=== PATIENT | male | born 1950 | race Caucasian/White ===

== ENCOUNTER 2022-02-08 14:53 | Inpatient (IN) | payer MEDICARE, OTHER, SELFPAY ==
[2022-02-08] VITALS (7 sets, daily range): BP systolic 104–158; BP diastolic 70–86; PULSE 56–71; RESP 15–18; TEMP 36.2–37; O2SAT 96–99; BMI 24.4
--- NOTE | 2022-02-08 15:16 | XR_ITS ---
WS: [id number] XR chest 1V portable [id number] REASON FOR EXAM: dyspnea/cough FINDINGS: Presumed overlying artifact battery pack superimposed over the left heart. The heart and mediastinum are within normal limits. No active pulmonary parenchymal or pleural disease is identified. Degenerative changes in the mid and lower thoracic spine. XR/XR chest 1V portable [id number] IMPRESSION: No acute chest abnormality.
--- NOTE | 2022-02-08 15:16 | ECG_ITS ---
[facility] Test Date: 2022-02-08 Pat Name: Isidro Mirza Department: Room: Gender: Male Internal Audit Consultant: : 1950 Requested By: Redd Martinez Order Number: [id number] Johnathan MD: Ko Bailey M.D. Measurements Intervals [place] Rate: 62 P: 25 AR: 202 QRS: 39 QRSD: 99 T: 64 QT: 362 QTc: 369 Interpretive Statements SINUS RHYTHM NONSPECIFIC T-WAVE ABNORMALITY No previous ECG available for comparison Electronically Signed On 02-09-2022 16:05:29 CDT by Ko Bailey M.D. [email or web address]/[id number] f
--- NOTE | 2022-02-08 15:53 | ED_ITS ---
HPI - Chest Pain General: Chief Complaint: Chest Pain Stated Complaint: sent to ER per Dr. Bailey Time Seen by Provider: 02/08/22 15:13 Source: patient Mode of arrival: ambulatory Limitations: no limitations History of Present Illness: 8-year-old male presents to the emergency room with episodes of lightheadedness dizziness near syncope. He was wearing a Holter monitor report but came back today and he had several long pauses up to 4 to 5 seconds. He has not had any chest pain. No known history of coronary disease. Onset (ago): minute(s) Timing of current episode: episodic Prior episodes: Yes Severity: moderate Relieving factors: nothing Exacerbating factors: nothing Associated symptoms: Reports palpitations; Deny abdominal pain, diaphoresis, dyspnea, fever(s), leg edema, nausea, sense of impending doom, syncope or vomiting Treatment prior to arrival: none Review of Systems Const: Denies: fever(s), chills or diaphoresis ENMT: Denies: throat pain, ear or mastoid pain, nasal discharge or nasal congestion Card: Reports: palpitations, irregular heart rhythm, lightheadedness and pre- syncope; Denies: chest pain or syncope Resp: Denies: dyspnea GI: Denies: abdominal pain, nausea or vomiting : Denies: flank pain, difficulty urinating, dysuria, urinary frequency or urinary urgency Skin/Breast: Denies: rash or pruritus PFS ED PFSH: Medical History (Updated 02/08/22 @ 17:41 by Redd Prather DO) Diabetes Hypertension Hypothyroidism Physical Exam Const: GENERAL APPEARANCE: cooperative and comfortable ORIENTATION/CONSCIOUSNESS: Yes awake, Yes oriented to person, Yes oriented to place and Yes oriented to time HENMT: COMMON NORMALS: normocephalic, atraumatic and hearing grossly normal bilaterally HEAD & SCALP: normocephalic and atraumatic Neck/C-Spine: COMMON NORMALS: no JVD Resp: COMMON NORMALS: normal respiratory effort, No retractions, No use of accessory muscles and clear to auscultation bilaterally AUSCULTATION: clear to auscultation bilaterally Cardio: COMMON NORMALS: no JVD, regular rate, regular rhythm and No murmurs present (Cardio) RATE: regular rate RHYTHM: regular rhythm GI: COMMON NORMALS: Soft to palpation and No hepatosplenomegaly present AUSCULTATION: Yes normoactive bowel sounds PALPATION: Yes Soft to palpation, No Tenderness to palpation present (GI), No Guarding due to palpation present (GI) and Yes No hepatosplenomegaly present Extremity: COMMON NORMALS: normal to inspection, capillary refill normal, no clubbing, cyanosis or edema, no calf tenderness and no pedal edema Neuro: SENSORIUM/ORIENTATION: Yes oriented to person, Yes oriented to place and Yes oriented to time Skin: COMMON NORMALS: no rashes or lesions noted GENERAL SKIN EXAM: no rashes or lesions noted Course Vital Signs: Vital signs: Vital Signs Temperature 98.6 F 02/08/22 15:04 Pulse Rate 71 02/08/22 15:04 Respiratory Rate 18 02/08/22 15:04 Blood Pressure 153/79 02/08/22 15:04 Pulse Oximetry 98 02/08/22 15:04 MDM - Chest Pain Medical Decision Making Patient is having heart block with long pauses on heart monitor he will need to be admitted and evaluated by cardiology for possibility of pacemaker placement discussed with Dr. Hernandez and consulted him admitted to the hospitalist Medical Records I reviewed the patient's medical records. Lab Data I reviewed the patient's lab results. : 02/08/22 16:10 02/08/22 16:10 Radiology Impressions Chest X-Ray 02/08/22 15:16 IMPRESSION: No acute chest abnormality. Laboratory Results WBC 7.0 10^3/uL (4.0-10.0) 02/08/22 16:10 RBC 4.82 10^6/uL (4.1-5.3) 02/08/22 16:10 Hgb 13.1 g/dL (11.7-16.6) 02/08/22 16:10 Hct 40.7 % (42.0-52.0) L 02/08/22 16:10 MCV 84.4 fl (80-94) 02/08/22 16:10 MCH 27.2 pg (28.0-34.0) L 02/08/22 16:10 MCHC 32.2 g/dL (30.0-36.0) 02/08/22 16:10 RDW 15.9 % (12.1-15.1) H 02/08/22 16:10 Plt Count 141 10^3/cmm (130-400) 02/08/22 16:10 MPV 11.0 fL (7.4-10.4) H 02/08/22 16:10 Neut % (Auto) 76.5 % 02/08/22 16:10 Lymph % (Auto) 11.0 % 02/08/22 16:10 [place] % (Auto) 10.2 % 02/08/22 16:10 Eos % (Auto) 1.8 % 02/08/22 16:10 Baso % (Auto) 0.4 % 02/08/22 16:10 Neut # (Auto) 5.37 10^3/uL (1.8-7.7) 02/08/22 16:10 Lymph # (Auto) 0.8 10^3/uL (0.8-4.8) 02/08/22 16:10 [place] # (Auto) 0.7 10^3/uL (0.2-0.9) 02/08/22 16:10 Eos # (Auto) 0.1 10^3/uL (0.0-0.8) 02/08/22 16:10 Baso # (Auto) 0.0 10^3/uL (0.0-0.1) 02/08/22 16:10 Nucleated RBC % (auto) 0 % 02/08/22 16:10 Nucleated RBCs # 0.0 /100WBC 02/08/22 16:10 Sodium 139 mmol/L (136-145) 02/08/22 16:10 Potassium 3.9 mmol/L (3.5-5.1) 02/08/22 16:10 Chloride 103 mmol/L (98-107) 02/08/22 16:10 Carbon Dioxide 21 mmol/L (22-29) L 02/08/22 16:10 Anion Gap 18.9 (5-19) 02/08/22 16:10 BUN 17 mg/dL (8-23) 02/08/22 16:10 Creatinine 2.2 mg/dL (0.7-1.2) H 02/08/22 16:10 GFR Calculation 29.7 mL/min (90-130) L 02/08/22 16:10 Glucose 216 mg/dL (65-115) H 02/08/22 16:10 Calculated Osmolality 296 mOsm/kg (285-295) H 02/08/22 16:10 Calcium 9.7 mg/dL (8.5-10.5) 02/08/22 16:10 Total Bilirubin 0.6 mg/dL (0.15-1.2) 02/08/22 16:10 AST 17 U/L (0-40) 02/08/22 16:10 ALT 16 U/L (0-41) 02/08/22 16:10 Alkaline Phosphatase 41 IU/L (40-130) 02/08/22 16:10 Troponin T Baseline 22 ng/L (0-15) H 02/08/22 16:10 Total Protein 7.1 g/dL (6.6-8.7) 02/08/22 16:10 Albumin 4.8 g/dL (3.5-5.2) 02/08/22 16:10 Globulin 2.3 g/dL (1.3-4.6) 02/08/22 16:10 Discharge Plan Discharge Condition: Stable Prescriptions: No Action carvedilol 6.25 mg tablet 6.25 mg PO BID 0RF levothyroxine 50 mcg tablet 50 mcg PO DAILY 0RF metformin 1,000 mg tablet 1,000 mg PO BID 0RF aspirin 81 mg Tablet,Chewable 81 mg PO DAILY 0RF losartan 100 mg tablet 100 mg PO DAILY 0RF rosuvastatin 40 mg tablet 40 mg PO DAILY 0RF Tradjenta 5 mg Tablet 5 mg PO DAILY 0RF Referrals: Joel North MD [Primary Care Provider] - Coding Level of Care Code ED Laborer Cutting Tool for Chg Fwd Exam Comprehensive
[2022-02-08 16:14] LABS: Basophils % 0.4 %; Eosinophils # 0.1 10^3/uL (0.0-0.8); Eosinophils % 1.8 %; Hematocrit 40.7 % (42.0-52.0); Hemoglobin 13.1 g/dL (11.7-16.6); Lymphocytes # 0.8 10^3/uL (0.8-4.8); Mean Corpuscular HGB Conc 32.2 g/dL (30.0-36.0); Mean Corpuscular Hemoglobin 27.2 pg (28.0-34.0); Mean Corpuscular Volume 84.4 fl (80-94); Monocytes # 0.7 10^3/uL (0.2-0.9); Monocytes % 10.2 %; Neutrophils # 5.37 10^3/uL (1.8-7.7); Neutrophils % 76.5 %; Nucleated Red Blood Cells % 0 %; Platelet Count 141 10^3/cmm (130-400); Red Blood Count 4.82 10^6/uL (4.1-5.3); Red Cell Distribution Width 15.9 % (12.1-15.1)
[2022-02-08 16:52] LABS: Alanine Aminotransferase 16 U/L (0-41); Albumin Level 4.8 g/dL (3.5-5.2); Alkaline Phosphatase 41 IU/L (40-130); Anion Gap 18.9 (5-19); Aspartate Amino Transferase 17 U/L (0-40); Blood Urea Nitrogen 17 mg/dL (8-23); Calcium 9.7 mg/dL (8.5-10.5); Carbon Dioxide 21 mmol/L (22-29); Chloride 103 mmol/L (98-107); Globulin 2.3 g/dL (1.3-4.6); Glomerular Filtration Rate 29.7 mL/min (90-130); Glucose 216 mg/dL (65-115); Osmolality Calculated 296 mOsm/kg (285-295); Potassium 3.9 mmol/L (3.5-5.1); Sodium 139 mmol/L (136-145); Total Bilirubin 0.6 mg/dL (0.15-1.2); Total Protein 7.1 g/dL (6.6-8.7)
[2022-02-08 16:54] LABS: Troponin(5th) Baseline 22 ng/L (0-15)
--- NOTE | 2022-02-08 17:16 | ECG_ITS ---
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 Measurements Intervals [place] Rate: 61 P: 18 RI: 196 QRS: 26 QRSD: 102 T: 58 QT: 375 QTc: 378 Interpretive Statements SINUS RHYTHM NONSPECIFIC T-WAVE ABNORMALITY Compared to ECG 02/08/2022 15:18:06 No significant changes Electronically Signed On 02-09-2022 16:11:50 CDT by Ko Bailey M.D. [id number]
--- NOTE | 2022-02-08 17:47 | P.HP_ITS ---
Providers/Chief Complaint Primary Care Provider: Joel North MD Chief Complaint: sent to ER per Dr. Bailey History of Present Illness Isidro Mirza is a 71 year old male who presented to the hospital after abnormal Holter report. Patient is stating that he had 1 syncopal event about 3 to 4 months ago when he was shopping in the [place]. And then he had 2 presyncopal events at home. Most of these events happen at the time of exertion. He has not experienced any AR, CHF, he has been on Coreg for hypertension, he also has history of hypothyroidism. No recent chest pain, fever, diarrhea. He is vaccinated for COVID-19. In last 48 hours he did not experience any chest pain, shortness of breath dizziness or confusion. No recent falls. He was called because of abnormal Holter monitoring report. There is 4.1-second of minus pause. Patient is hemodynamically stable. We will keep him n.p.o. after midnight, has been evaluated by Dr. Bailey, plan for pacemaker placement. Review of Systems Const: Denies: fever(s) Eyes: Denies: change in vision ENMT: Denies: throat pain Card: Denies: chest pain Resp: Denies: dyspnea GI: Denies: abdominal pain : Denies: flank pain Musc: Denies: neck pain Skin/Breast: Denies: rash Neuro: Denies: headache(s) Psych: Denies: anxiety Endo: Denies: polyuria Bertrand/Lymph: Denies: easy bruising All/Imm: Denies: urticaria Medications/Allergies Home Medications Medication Instructions Recorded Confirmed Last Taken Type aspirin 81 mg chewable tablet 81 mg PO DAILY 02/08/22 02/08/22 02/08/22 History carvedilol 6.25 mg tablet 6.25 mg PO BID 02/08/22 02/08/22 02/08/22 History levothyroxine 50 mcg tablet 50 mcg PO DAILY 02/08/22 02/08/22 02/08/22 History linagliptin 5 mg tablet (Tradjenta) 5 mg PO DAILY 02/08/22 02/08/22 02/08/22 History losartan 100 mg tablet 100 mg PO DAILY 02/08/22 02/08/22 02/08/22 History metformin 1,000 mg tablet 1,000 mg PO BID 02/08/22 02/08/22 02/08/22 History rosuvastatin 40 mg tablet 40 mg PO DAILY 02/08/22 02/08/22 02/08/22 History Allergies Allergy/AdvReac Type Severity Reaction Status Date / Time No Known Allergies Allergy Unverified 02/08/22 16:17 PFSH Acute PFSH: Medical History (Updated 02/08/22 @ 18:20 by Miguel Andrews MD) Diabetes Hypertension Hypothyroidism Surgical History (Updated 02/08/22 @ 18:20 by Miguel Andrews MD) Hx of tonsillectomy Family History (Updated 02/08/22 @ 18:20 by Miguel Andrews MD) Sister Pacemaker Other Diabetes Social History (Updated 02/08/22 @ 18:21 by Miguel Andrews MD) Smoking and tobacco status: never smoked Substance/Drug Use: never Household members: spouse Vitals/I&O/Wt Last Vital Signs Temp 98.6 F 02/08/22 15:04 Pulse 71 02/08/22 15:04 Resp 18 02/08/22 15:04 BP 153/79 02/08/22 15:04 Pulse Ox 98 02/08/22 15:04 Weight last 48 hrs Weight 81.647 kg Physical Exam Narrative: Very pleasant elderly male Euvolemic , S2 no murmur appreciated No signs of heart failure Nonfocal neuro exam Saturating well on room air Abdomen is soft Appropriate mood and affect No joint swelling No audible stridor or wheezing Data : 02/08/22 16:10 02/08/22 16:10 A&P Assessment and plan (1) Hypothyroidism: Status: Acute (2) Hypertension: Status: Acute (3) Diabetes: Status: Acute (4) Sinus pause: Status: Acute (5) Syncopal episodes: Status: Acute Plan Syncopal event, presyncopal events in the past Holter monitoring report consistent with sinus pause 4.1-second Does not appear to be third-degree AV block, irregular P&R marching Currently stable without any symptoms N.p.o. after midnight Hold AV evan blocking agent Patient is full code Cardiology consulted Low-dose sliding scale Hypothyroidism: Check TSH, mag level, continue levothyroxine at 50 mics for now Attestations Medical Necessity Statement*: Patient will need pacemaker evaluation anticipating more than 2 midnights in the hospital Time Spent in Patient Care: 40mins Coding Level of Care Code Acute Director Of Accounts Receivable for Chg Fwd Diagnoses Hypothyroidism E03.9 Hypertension I10 Diabetes E11.9 Sinus pause I45.5 Syncopal episodes R55
[2022-02-08 19:31] LABS: Thyroid Stimulating Hormone 1.33 uIU/mL (0.27-4.20)
[2022-02-08 19:45] LABS: Troponin 5 2HR 22.92 ng/L (0-15)
[2022-02-08 19:47] LABS: Troponin 5 2HR Delta 0.92 ABS# (0-10)
--- NOTE | 2022-02-08 21:16 | ECG_ITS ---
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 Measurements Intervals [place] Rate: 55 P: 15 SD: 208 QRS: 14 QRSD: 110 T: 66 QT: 404 QTc: 387 Interpretive Statements SINUS BRADYCARDIA NONSPECIFIC T-WAVE ABNORMALITY Compared to ECG 02/08/2022 18:14:19 Sinus rhythm no longer present T-wave abnormality still present Electronically Signed On 02-09-2022 16:11:15 CDT by Ko Bailey M.D. [id number]
[2022-02-08 22:16] LABS: Glucose Point of Care 123 mg/dL (70-110)
--- NOTE | 2022-02-08 22:37 | P.CONIM_ITS ---
Providers/Reason For Consult Consulting Physician/Specialty*: Ko Bailey MD/ Cardiology Reason for Consult*: Pause/ Syncopal episode Requesting Physician: Dr Prather Attending Physician: Ko Bailey M.D Primary Care Provider: Joel North MD History of Present Illness History of Present Illness Isidro Mirza is a 71 year old male with past medical history of hypertension, hypothyroidism and diabetes earlier who has been sent to the emergency room after having a 4-second pause on event monitor. Patient had 1 episode of syncope about 4 months back after he donated blood and went to the [facility]. He was walking and felt lightheaded and fell down. He had another episode when he was picking up heavy boxes and felt lightheaded with that. No prior cardiac history. Denies any chest pain. Says he does get dyspnea on exertion at times. On review of Holter monitor, there are 2 nonconducted P waves in succession. This occurred at around 7 PM when patient was watching TV. Denies any symptoms with it. He says that he has been getting lightheaded symptoms in the last week or so since he is wearing the event monitor but was not called regarding any other arrhythmias. His lightheadedness is symptoms are mostly when he stands up from sitting position or bends down and gets up. EKG does not show any heart block. On Holter monitoring, his heart rate is taking 60s and 70s. Review of Systems Const: Denies: fever(s) Eyes: Denies: change in vision ENMT: Denies: throat pain Card: Denies: chest pain Resp: Denies: dyspnea GI: Denies: abdominal pain : Denies: flank pain Musc: Denies: neck pain Skin/Breast: Denies: rash Neuro: Denies: headache(s) Psych: Denies: anxiety Endo: Denies: polyuria [place]/Lymph: Denies: easy bruising All/Imm: Denies: urticaria Medications/Allergies Home Medications Medication Instructions Recorded Confirmed Last Taken Type aspirin 81 mg chewable tablet 81 mg PO DAILY 02/08/22 02/08/22 02/08/22 History carvedilol 6.25 mg tablet 6.25 mg PO BID 02/08/22 02/08/22 02/08/22 History levothyroxine 50 mcg tablet 50 mcg PO DAILY 0402/08/22 02/08/22 History linagliptin 5 mg tablet (Tradjenta) 5 mg PO DAILY 02/08/22 02/08/22 02/08/22 History losartan 100 mg tablet 100 mg PO DAILY 02/08/22 02/08/22 02/08/22 History metformin 1,000 mg tablet 1,000 mg PO BID 02/08/22 02/08/22 02/08/22 History rosuvastatin 40 mg tablet 40 mg PO DAILY 02/08/22 02/08/22 02/08/22 History Allergies Allergy/AdvReac Type Severity Reaction Status Date / Time No Known Allergies Allergy Unverified 02/08/22 16:17 Current Medications Generic Name Dose Route Start Last Admin Trade Name Daisy PRN Reason Stop Dose Admin Insulin Human Lispro 0 unit 02/08/22 20:48 02/08/22 21:48 Insulin Lispro 100 Unit/1 Ml SUBCUT Not Given TIDWM GUANAKO Protocol PFSH Acute PFSH: Medical History Diabetes Hypertension Hypothyroidism Surgical History Hx of tonsillectomy Family History Sister Pacemaker Other Diabetes Social History Smoking and tobacco status: never smoked Substance/Drug Use: never Household members: spouse Vitals/I&O/Wt Last Vital Signs Temp 98.6 F 02/08/22 15:04 Pulse 61 02/08/22 22:00 Resp 15 02/08/22 20:51 BP 130/70 02/08/22 20:51 Pulse Ox 98 02/08/22 20:51 02/08/22 02/08/22 02/08/22 06:59 14:59 22:59 Intake Total 120 / 120 Balance 120 / 120 Weight last 48 hrs Weight 180 lb Physical Exam Narrative: GENERAL: Patient is alert, awake and oriented x3. [] NECK: No jugular vein distension. [] HEENT: No cyanosis. No icterus. No pallor. [] HEART: Regular S1 and S2. No murmur, rub or gallop. [] LUNGS: Clear to auscultate bilaterally. [] ABDOMEN: Soft, nontender and nondistended. Positive bowel sounds. No guarding, rebound or tenderness. [] CENTRAL NERVOUS SYSTEM: Grossly nonfocal. [] EXTREMITIES: Lower extremities with 1+ edema bilaterally. Pulses palpable in the lower extremities, both dorsalis pedis and posterior tibial. [] Data : 02/09/22 02:58 02/09/22 02:58 A&P Assessment and plan (1) Sinus arrest: Status: Acute (2) Hypertension: Status: Acute (3) Diabetes: Status: Acute (4) Hypothyroidism: Status: Acute Plan Patient has a history of one syncopal episode and a presyncopal episode in the past. He has been on event monitoring for over a week. Yesterday had nonconducted P waves with a pause of 4 seconds. However he was asymptomatic. His symptoms are not correlating with his rhythm. He feels lightheaded when he bends down and stands up. This has happened several times during the last 1 week however no other pauses have been noted. His syncopal episode occurred after he donated blood and was walking in [facility]. He is on Coreg. We will hold with rate controlling medications. As we have no evidence so far correlation of symptoms with his pause, we will continue to follow this time. Add amlodipine 5 mg to compensate for antihypertensive effect of Coreg. Has occasional dyspnea on exertion. We will order echocardiogram and exercise MIBI. Exercise will also give information regarding chronotropic competence. Since he is in the hospital, his heart rates have been in the 60s and 70s. Telemetry overnight and decision regarding need for pacemaker based on that. Thanks for involving us with care of this patient. We will continue to follow. Please call with questions Coding Level of Care Code Acute Numberer And Wirer for Lm Thomas Diagnoses Sinus arrest I45.5 Hypertension I10 Diabetes E11.9 Hypothyroidism E03.9
[2022-02-09] VITALS (9 sets, daily range): BP systolic 123–175; BP diastolic 65–79; PULSE 55–83; RESP 13–20; TEMP 36.6–36.7; O2SAT 93–98
[2022-02-09 03:39] LABS: Basophils % 0.5 %; Eosinophils # 0.2 10^3/uL (0.0-0.8); Eosinophils % 2.9 %; Hematocrit 37.3 % (42.0-52.0); Hemoglobin 11.6 g/dL (11.7-16.6); Lymphocytes # 1.2 10^3/uL (0.8-4.8); Lymphocytes % 22.1 %; Mean Corpuscular HGB Conc 31.1 g/dL (30.0-36.0); Mean Corpuscular Hemoglobin 26.9 pg (28.0-34.0); Mean Corpuscular Volume 86.5 fl (80-94); Mean Platelet Volume 11.3 fL (7.4-10.4); Monocytes # 0.7 10^3/uL (0.2-0.9); Neutrophils # 3.37 10^3/uL (1.8-7.7); Neutrophils % 61.1 %; Nucleated Red Blood Cells % 0 %; Platelet Count 142 10^3/cmm (130-400); Red Blood Count 4.31 10^6/uL (4.1-5.3); Red Cell Distribution Width 15.8 % (12.1-15.1); White Blood Count 5.5 10^3/uL (4.0-10.0)
[2022-02-09 03:51] LABS: Anion Gap 15.3 (5-19); Blood Urea Nitrogen 18 mg/dL (8-23); Calcium 9.6 mg/dL (8.5-10.5); Carbon Dioxide 23 mmol/L (22-29); Chloride 106 mmol/L (98-107); Glomerular Filtration Rate 29.7 mL/min (90-130); Glucose 130 mg/dL (65-115); Osmolality Calculated 296 mOsm/kg (285-295); Potassium 3.3 mmol/L (3.5-5.1); Sodium 141 mmol/L (136-145)
[2022-02-09 06:24] LABS: Glucose Point of Care 121 mg/dL (70-110)
--- NOTE | 2022-02-09 06:29 | PC.NURSE ---
left chest hair clipped. Site cleansed with CHG. Gown changed. Leads placed on pt's back.
--- NOTE | 2022-02-09 07:33 | USCV_ITS ---
Isidro Mirza Age: 71 Gender: M : 1950 Exam Date: 02/09/2022 07:59 Ordering Phys: Ko Bailey M.D ([email or web address]) Technologist: SHERITA [place] [facility] [place]: Dyspnea on exertion BP: 175 / 79 HR: 53 Rhythm: Sinus Technical Quality: Adequate MEASUREMENTS (Male / Female) Normal Values 2D ECHO LV Diastolic Diameter PLAX 4.8 cm 4.2 - 5.9 / 3.9 - 5.3 cm LV Systolic Diameter PLAX 2.8 cm IVS Diastolic Thickness 0.9 cm 0.6 - 1.0 / 0.6 - 0.9 cm IVS Systolic Thickness 1.4 cm LVPW Diastolic Thickness 0.9 cm 0.6 - 1.0 / 0.6 - 0.9 cm LVPW Systolic Thickness 1.6 cm RV Chamber Size 2.3 cm LVOT Diameter 2.0 cm LV Ejection Fraction 2D Teich 72.3 % LV Ejection Fraction MOD 2C 61.2 % LV Ejection Fraction 2C AL 67.4 % LA Diameter 3.0 cm LA Width 3.7 cm LA Height 3.8 cm RA Width 2.3 cm RA Height 4.1 cm Aorta at Sinotubular Diameter 2.3 cm M-MODE Aortic Annulus Diameter 2.9 cm LA Ao Ratio MM 1.1 MV E Point Septal Separation 0.3 cm DOPPLER AV Peak Velocity 272.3 cm/s LVOT Peak Velocity 108.0 cm/s AV Area Cont Eq vti 0.6 cm squared AV Area Cont Eq pk 1.3 cm squared MV Area PHT 2.4 cm squared Mitral E to A Ratio 0.7 MV E' Velocity 32.5 cm/s Mitral E to MV E' Ratio 5.9 Mitral E to LV E' Lateral Ratio 5.4 Mitral E to LV E' Septal Ratio 6.7 TR Peak Velocity 251.0 cm/s TR Peak Gradient 25.2 mmHg TV Peak E Velocity 49.0 cm/s Right Atrial Pressure 3.0 mmHg Pulmonary Artery Systolic Pressu 28.2 mmHg PV Peak Velocity 126.0 cm/s RV Acceleration Time 0.1 s RV Ejection Time 0.3 s RV AcT/ET 0.3 FINDINGS Left Ventricle Normal left ventricular size. LV systolic function is normal with EF of 55-60%. No regional wall motion abnormalities. Grade 1 diastolic dysfunction Right Ventricle The right ventricle is normal in size and function. Right Atrium The right atrium is normal in size. Left Atrium The left atrium is normal in size. Mitral Valve Structurally normal mitral valve without significant stenosis or prolapse. There is trace mitral regurgitation. Aortic Valve Structurally normal aortic valve without significant sclerosis or stenosis. There is mild aortic regurgitation. Tricuspid Valve Structurally normal tricuspid valve without significant stenosis. Trace tricuspid regurgitation. Insufficient TR jet to calculate RVSP Pulmonic Valve Structurally normal pulmonic valve without significant stenosis. There is no pulmonic regurgitation. Pericardium Normal pericardium without effusion. Aorta Normal ascending aorta dimension. CONCLUSIONS LV systolic function is normal with EF of 55-60% Grade 1 diastolic dysfunction Trace mitral regurgitation Mild aortic regurgitation Trace tricuspid regurgitation No comparison studies are available Ko Bailey MD (Electronically Signed) Final Date: 09 February 2022 16:32 S
--- NOTE | 2022-02-09 07:41 | NMCV_ITS ---
NM selina perf SPECT r/s* [id number] Isidro Mirza Age: 71 Gender: M : 1950 Exam Date: 02/09/2022 10:16 Ordering Phys: Ko Bailey M.D ([email or web address]) Technologist: JAKE Dumont Exam Location: [facility] Indications: SINUS PAUSE, SYNCOPE STRESS TEST Please see separate stress test report in [facility] for full findings IMAGE PROTOCOL Rest/Stress 1 Exercise Day Radiopharmaceutical Dose (mCi) Administration Site Administered by Rest: Tc-99m 10.7 IV JAKE Dumont Sestamibi Stress:Tc-99m 32.6 IV JAKE Vides Sestamibi Rest: 09-Feb-2022 60 Discovery 630 Stress: 09-Feb-2022 15 Discovery 630 Radiopharmaceutical was injected at 85 % maximum heart rate. Images obtained in supine and prone position. SPECT RESULTS Technical Quality: Excellent Raw Data Analysis: Normal Image Corrections: No attenuation or motion correction applied Summed Stress Score: 0 Summed Rest Score: 0 Summed Difference Score: 0 PERFUSION FINDINGS SPECT images demonstrate homogeneous tracer distribution throughout the myocardium. FUNCTIONAL RESULTS (calculated via Gated SPECT) Stress Image LV EF (%): 83 Stress EDV (mL):81 TID: 0.69 Stress ESV (mL):14 FUNCTIONAL FINDINGS: There is normal left ventricular systolic function. IMPRESSIONS 1. Normal myocardial perfusion imaging with no evidence of ischemia 2. LV systolic function is normal Ko Bailey MD (Electronically Signed) Final Date: 09 February 2022 12:02 S
--- NOTE | 2022-02-09 08:31 | P.PN_ITS ---
Subjective Subjective: Patient is feeling well. On telemetry, no pauses noted. Vitals/I&O/Wt Last Vital Signs Temp 98.1 F 02/09/22 07:28 Pulse 55 L 02/09/22 07:28 Resp 16 02/09/22 07:28 BP 175/79 02/09/22 07:28 Pulse Ox 98 02/09/22 07:28 02/08/22 02/09/22 02/09/22 22:59 06:59 14:59 Intake Total 120 / 120 0 / 120 Balance 120 / 120 0 / 120 Weight last 48 hrs Weight 180 lb Physical Exam Narrative: GENERAL: Patient is alert, awake and oriented x3. [] NECK: No jugular vein distension. [] HEENT: No cyanosis. No icterus. No pallor. [] HEART: Regular S1 and S2. No murmur, rub or gallop. [] LUNGS: Clear to auscultate bilaterally. [] ABDOMEN: Soft, nontender and nondistended. Positive bowel sounds. No guarding, rebound or tenderness. [] CENTRAL NERVOUS SYSTEM: Grossly nonfocal. [] EXTREMITIES: Lower extremities with no edema bilaterally. Pulses palpable in the lower extremities, both dorsalis pedis and posterior tibial. [] Data : 02/09/22 02:58 02/09/22 02:58 A&P Assessment and plan (1) Hypertension: Status: Acute (2) Diabetes: Status: Acute (3) Hypothyroidism: Status: Acute (4) Pre-syncope: Status: Acute Plan Patient has a history of one syncopal episode and a presyncopal episode in the past. He has been on event monitoring for over a week. Yesterday had 2 consecutive non-conducted P waves with a pause of 4 seconds. However he was asymptomatic. His symptoms are not correlating with his rhythm. He feels lightheaded when he bends down and stands up. This has happened several times during the last 1 week however no other pauses have been noted on event monitor. His syncopal episode occurred after he donated blood and was walking in [facility]. He was on Coreg. We will hold with rate controlling medications. As we have no evidence so far correlation of symptoms with his pause, we will continue to follow at this time. Add amlodipine 5 mg as coreg has been stopped. Has occasional dyspnea on exertion. We obtained echocardiogram showing normal LV systolic function and exercise MIBI that showed no evidence of ischemia and good chronotropic response. At this time we will hold off on pacemaker placement given no correlation found between symptoms and rhythm. He had single episode of non-conducted p waves with a 4 second pause but he was completely asymptomatic at that time. Patient will continue to wear the event monitor. We will follow in the office in 3 weeks. In between if there are any episodes of long pauses, syncope/presyncope, patient has been informed to come to ER. He understands the plan and has agreed to it. Thanks for involving us with care of this patient. Please call with questions Attestations Medical Necessity Statement*: Care expected to cross 2 midnights. Coding Level of Care Code Acute Director Speech for Lm Thomas Diagnoses Hypertension I10 Diabetes E11.9 Hypothyroidism E03.9 Pre-syncope R55
[2022-02-09] MEDS: losartan 50 mg Tablet 100 MG PO (09:30)
[2022-02-09] MEDS: levothyroxine 50 mcg Tablet PO (09:30)
[2022-02-09] MEDS: aspirin 81 mg Chew Tablet PO (09:30)
--- NOTE | 2022-02-09 09:34 | P.PN_ITS ---
Subjective Subjective: Overnight sinus bradycardia first-degree AV block Plan for exercise stress test as per Dr. Bailey Hemodynamically stable No chest pain confusion or shortness of breath Creatinine 2.2 Potassium 3.3 Magnesium 2.0 Vitals/I&O/Wt Last Vital Signs Temp 98.1 F 02/09/22 07:28 Pulse 55 L 02/09/22 07:28 Resp 16 02/09/22 07:28 BP 175/79 02/09/22 09:30 Pulse Ox 98 02/09/22 07:28 02/08/22 02/09/22 02/09/22 22:59 06:59 14:59 Intake Total 120 / 120 0 / 120 Balance 120 / 120 0 / 120 Weight last 48 hrs Weight 81.647 kg Physical Exam Narrative: Patient is comfortable in his bed Saturating well on room air Hemodynamically stable Heart rate 55-60 No signs of heart failure Pleasant and cooperative No signs of fluid overload No audible stridor or wheezing Saturating well on room air Data : 02/09/22 02:58 02/09/22 02:58 A&P Assessment and plan (1) Sinus pause: Status: Acute (2) Syncopal episodes: Status: Acute (3) Hypothyroidism: Status: Acute (4) Hypertension: Status: Acute (5) Diabetes: Status: Acute Plan Sinus pauses Syncopal event in the past No active symptoms Hemodynamically stable Plan for exercise stress test this morning Dr. Bailey planning for the stress test Potassium repleted: Magnesium normal Be noted blocking agent discontinued Chronic kidney disease without acute exacerbation Would recommend outpatient nephrology follow-up Avoid nephrotoxic agents N.p.o. 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
--- NOTE | 2022-02-09 10:38 | PC.CHAP ---
Pastoral Care Encounter/Spiritual Assessment Type of Contact [] Declined bonderizer operator visit [] Patient/Family/Request visit [] Outpatient visit [] Follow-up visit [] Physician referral [] Code/Alert [x] Routine visit [] Staff referral [] Actively dying [] Patient sleeping [x] Family support [] [] Out of room [] Palliative care [] [] Receiving care in room [] Pre-surgical visit [] Trauma [] Long length of stay [] ICU visit [] Other: Relational/Emotional Strength [] Patient feels connected with others/family/visitors/staff [] Distress [] Loneliness/isolation [] Abandonment Spirituality of Patient [] Person of Elise [] Attends Uatsdin of their Elise [] Believes in Prayer [] Reads Bible or Nondenominational materials [] There are Spiritual issues to be addressed [employer] Fabricating Supervisor Interventions [x] Prayer [] Active listening [] Non-anxious presence [] Spiritual/emotional support [] Crisis/trauma care [] Spiritual counseling [] Bereavement support [] Provided bereavement packet [] Provided Bible/devotional materials [] Provided toy/stuffed animal, coloring book to patient or family member [] Provided Communion [] Anointing/Laura [] Salvation [x] Completed spiritual assessment [] Other: Impact on Illness or Injury [] Angry [] Fearful [] Anxious [] Often cries [] Exhaustion [] Unable to work [] Unable to attend jain [] Unable to walk/stand [] Unable to read [] Unable to drive [] Unable to eat/drink [] Unable to sleep [] Unable to be with family [] Patient intubated [] Other: Summary Time spent with patient
--- NOTE | 2022-02-09 10:44 | ECG_ITS ---
[facility] Test Date: 2022-02-09 Pat Name: Isidro Mirza Department: Room: 111 Gender: Male All Source Intelligence: Elvira Huffman : 1950 Requested By: Ko Bailey Order Number: [id number] Johnathan MD: Ko Bailey M.D. Interpretive Statements NAME OF STUDY: EXERCISE SESTAMIBI STRESS TEST INDICATION: [1st dregee av blcok, ] EXERCISE DATA: The patient was exercised by Malcom protocol. Baseline heart rate was 63 beats per minute. Baseline blood pressure was 143/81 millimeters of mercury. Target heart rate was 127 beats per minute. Maximum heart rate achieved was 134, which was 103% of the target heart rate. Maximum blood pressure was 264/79 millimeters of mercury. Total exercise time was 7 minutes and 4 seconds. Maximum METs achieved was 10.2, maximum VO2 was 35.7. The reason for ending the test was completion of the protocol. The patient complained of shortness of breath during the stress test, which then resolved at the end of the test. ELECTROCARDIOGRAM: BASELINE: Showed sinus rhythm, normal axis, no significant ST-T changes at the baseline noted. [] EXERCISE: At the peak exercise level, [] No significant ST-T changes suggestive of ischemia noted. [] RECOVERY: During the recovery period, heart rate dropped appropriately. No significant ST-T changes in the recovery suggestive of ischemia noted. [] CONCLUSION: 1. Exercise capacity is good. 2. Heart rate response was appropriate. 3. Blood pressure response was hypertensive 4. Symptoms not suggestive of ischemia. 5. Electrocardiogram portion of the stress test was not suggestive of ischemia. 6. Nuclear scan will be documented separately. Electronically Signed On 02-10-2022 13:34:18 CDT by Ko Bailey M.D. [id number]
[2022-02-09] MEDS: potassium chloride ER 20 mEq Tablet 40 MEQ PO (12:27)
--- NOTE | 2022-02-09 12:30 | PM.DCS ---
Discharge Providers Date of Admission: 02/08/22 16:59 Date of Discharge: February 09, 2022 Attending Provider at Admission: Ko Bailey M.D Attending Provider at Discharge: Ko Bailey M.D Primary Care Provider: Joel North MD Diagnoses at Discharge Discharge Diagnosis (1) Sinus pause: Status: Acute (2) Syncopal episodes: Status: Acute (3) Hypothyroidism: Status: Acute (4) Hypertension: Status: Acute (5) Diabetes: Status: Acute Reason for Visit Reason for Visit: sent to ER per Dr. Bailey Hospital Course Hospital Course ADMIT NOTE Isidro Mirza is a 71 year old male who presented to the hospital after abnormal Holter report.? Patient is stating that he had 1 syncopal event about 3 to 4 months ago (after blood donation) when he was shopping in the [place].? And then he had 2 presyncopal events at home.? Most of these events happen at the time of exertion.? He has not experienced any UT, CHF, he has been on Coreg for hypertension, he also has history of hypothyroidism.? No recent chest pain, fever, diarrhea.? He is vaccinated for COVID-19.? In last 48 hours he did not experience any chest pain, shortness of breath dizziness or confusion.? No recent falls.? He was called because of abnormal Holter monitoring report.? There is 4.1-second of minus pause.? Patient is hemodynamically stable.? We will keep him n.p.o. after midnight, has been evaluated by Dr. Bailey, plan for pacemaker placement. Hosp course:- Patient was admitted for management and evaluation of sinus pause that was noted on Holter monitor, patient remained hemodynamically stable, at the time of admission cardiology evaluated him and recommended overnight monitoring, next day decision was made to do stress test because overnight his telemetry showed first-degree AV block he remained in sinus rhythm. No active signs or symptoms of bradycardia noted. He is denying chest pain confusion shortness of breath or confusion. Cardiac stress test and echo unremarkable. Dr. Bailey recommended event monitor and outpatient follow-up. Patient seems to have creatinine 2.2 which she is attributing to dehydration, I will go ahead and discontinue losartan, Metformin, for antihypertensive regimen will add amlodipine and chlorthalidone which is renal and cardioprotective & good med in CKD. Discontinued Coreg. With this exercise stress test Mr. Mirza showed good chronotropic response without any symptoms. Troponins negative, EKG showing first-degree AV block, sinus pause 4.1-second, Holter strips reviewed with Dr. Bailey. He will follow up with Dr. Bailey clinic. Medications discontinued during hospitalization: Losartan, Coreg and Metformin Medications added: Amlodipine and chlorthalidone Follow-up with [facility] for creatinine Follow-up with PCP Dr. North to decide whether he will need nephro consultation outpatient Physical Exam Narrative: Pleasant cooperative male Euvolemic S1, S2 Hemodynamically stable Abdomen soft Nonfocal neuro exam EOMI, PERRLA Discharge Data Studies Completed and Pending Completed Studies During Hospitalization Category Date Time Status Cardiac Stress Test MIBI [Sestamibi Stress Test Request Exams 02/09/22 10:44 Draft ] Routine XR chest 1V portable [id number] Stat Exams 02/08/22 15:16 Completed NM selina perf SPECT r/s* [id number] Routine Nuc Med 02/09/22 07:41 Completed Pending at discharge Category Date Time Status CV. echo complete* [id number] Routine Ultrasound 02/09/22 07:33 Taken Radiology Impressions Chest X-Ray 02/08/22 15:16 IMPRESSION: No acute chest abnormality. Laboratory Results WBC 5.5 10^3/uL (4.0-10.0) 02/09/22 02:58 RBC 4.31 10^6/uL (4.1-5.3) 02/09/22 02:58 Hgb 11.6 g/dL (11.7-16.6) L 02/09/22 02:58 Hct 37.3 % (42.0-52.0) L 02/09/22 02:58 MCV 86.5 fl (80-94) 02/09/22 02:58 MCH 26.9 pg (28.0-34.0) L 02/09/22 02:58 MCHC 31.1 g/dL (30.0-36.0) 02/09/22 02:58 RDW 15.8 % (12.1-15.1) H 02/09/22 02:58 Plt Count 142 10^3/cmm (130-400) 02/09/22 02:58 MPV 11.3 fL (7.4-10.4) H 02/09/22 02:58 Neut % (Auto) 61.1 % 02/09/22 02:58 Lymph % (Auto) 22.1 % 02/09/22 02:58 Pondera % (Auto) 13.0 % 02/09/22 02:58 Eos % (Auto) 2.9 % 02/09/22 02:58 Baso % (Auto) 0.5 % 02/09/22 02:58 Neut # (Auto) 3.37 10^3/uL (1.8-7.7) 02/09/22 02:58 Lymph # (Auto) 1.2 10^3/uL (0.8-4.8) 02/09/22 02:58 Pondera # (Auto) 0.7 10^3/uL (0.2-0.9) 02/09/22 02:58 Eos # (Auto) 0.2 10^3/uL (0.0-0.8) 02/09/22 02:58 Baso # (Auto) 0.0 10^3/uL (0.0-0.1) 02/09/22 02:58 Nucleated RBC % (auto) 0 % 02/09/22 02:58 Nucleated RBCs # 0.0 /100WBC 02/09/22 02:58 Sodium 141 mmol/L (136-145) 02/09/22 02:58 Potassium 3.3 mmol/L (3.5-5.1) L 02/09/22 02:58 Chloride 106 mmol/L (98-107) 02/09/22 02:58 Carbon Dioxide 23 mmol/L (22-29) 02/09/22 02:58 Anion Gap 15.3 (5-19) 02/09/22 02:58 BUN 18 mg/dL (8-23) 02/09/22 02:58 Creatinine 2.2 mg/dL (0.7-1.2) H 02/09/22 02:58 GFR Calculation 29.7 mL/min (90-130) L 02/09/22 02:58 Glucose 130 mg/dL (65-115) H 02/09/22 02:58 POC Glucose 121 mg/dL (70-110) H 02/09/22 06:02 Calculated Osmolality 296 mOsm/kg (285-295) H 02/09/22 02:58 Calcium 9.6 mg/dL (8.5-10.5) 02/09/22 02:58 Magnesium 2.0 mg/dL (1.7-2.3) 02/09/22 02:58 Total Bilirubin 0.6 mg/dL (0.15-1.2) 02/08/22 16:10 AST 17 U/L (0-40) 02/08/22 16:10 ALT 16 U/L (0-41) 02/08/22 16:10 Alkaline Phosphatase 41 IU/L (40-130) 02/08/22 16:10 Troponin T Baseline 22 ng/L (0-15) H 02/08/22 16:10 Troponin T 120 Minute 22.92 ng/L (0-15) H 02/08/22 18:53 Delta Troponin T 0.92 ABS# (0-10) 02/08/22 18:53 Troponin T Hi Sens 6Hr 20.10 ng/L (0-15) H 02/08/22 22:39 Troponin T Hi Sens 6Hr Delta -1.90 ng/L (0-12) L 02/08/22 22:39 Total Protein 7.1 g/dL (6.6-8.7) 02/08/22 16:10 Albumin 4.8 g/dL (3.5-5.2) 02/08/22 16:10 Globulin 2.3 g/dL (1.3-4.6) 02/08/22 16:10 TSH 1.33 uIU/mL (0.27-4.20) 02/08/22 18:53 Vitals Last Vital Signs Temp 98.1 F 02/09/22 07:28 Pulse 69 02/09/22 11:18 Resp 16 02/09/22 07:28 BP 140/67 02/09/22 11:18 Pulse Ox 98 02/09/22 07:28 Discharge Plan Discharge Patient Disposition: Home Condition: Stable Prescriptions: New amlodipine 10 mg tablet 10 mg PO DAILY Qty: 30 3RF chlorthalidone 25 mg tablet 25 mg PO DAILY Qty: 30 3RF Continued levothyroxine 50 mcg tablet 50 mcg PO DAILY 0RF aspirin 81 mg Tablet,Chewable 81 mg PO DAILY 0RF rosuvastatin 40 mg tablet 40 mg PO DAILY 0RF Tradjenta 5 mg Tablet 5 mg PO DAILY 0RF Discontinued carvedilol 6.25 mg tablet 6.25 mg PO BID 0RF metformin 1,000 mg tablet 1,000 mg PO BID 0RF losartan 100 mg tablet 100 mg PO DAILY 0RF Discharge Orders: Discharge Order (Routine); Ordered 02/09/22 Ordered By: Miguel Andrews Other Ambulatory Orders: Basic Metabolic Panel (Routine) Timeframe: 3 Days Facility: [facility] - Location: Lab - Main Lab Ordered By: Miguel Andrews MCT/Event Monitor 30 Days (Routine) Timeframe: 30 Days Facility: [facility] - Location: Radiology Ordered By: Miguel Andrews Referrals: Ko Bailey M.D [Physician] - 1 month (Please call Dr. Bailey's office at [phone] to make a follow up appointment. Please call if you have any questions or concerns. Thank you.) Joel North MD [Primary Care Provider] - 4-7 days (Your follow up appointment with Dr. North is on 02-13-22 at 11:15 a.m. Please call [phone] if you have any questions or concerns. Thank you.) Discharge Diet: Cardiac Discharge Activity: Increase activity as tolerated Patient Instructions: Opioid Safety Activity Restrictions/Additional Instructions: Stop taking metformin, losartan and coreg Added new BP pills: AMlodipine and chlorthalidone Maintain BP log ANother [facility] within 2-3 days to check kidney function Discharge Attestations Time Spent in Discharge Care*: less than 30 min Quality Metrics Clinical Quality Measures [ No reported AMI, CVA or VTE this stay] Coding Level of Care Code Acute Chg FW DC note Diagnoses Sinus pause I45.5 Syncopal episodes R55 Hypothyroidism E03.9 Hypertension I10 Diabetes E11.9
[2022-02-09] MEDS: ipratropium-albuterol 3 mL Neb INHALATION (12:54)
--- NOTE | 2022-02-09 14:16 | PC.NURSE ---
Discharge Note Patient discharged to Home via private vehicle accompanied by brother. Discharge instructions reviewed with patient and/or fuels sales representative. Mobile pharmacy medications and/or prescriptions provided. Belongings/home medications returned.
== END 2022-02-09 14:16 | disposition home or self-care (01) | DRG 310 ==
LOC: ER 19:10 → CSU 19:39
PROVIDERS: Internal Medicine; Admitting Provider Internal Medicine; Emergency Provider Family Medicine; PCP Family Medicine; Visit Provider Internal Medicine
DX: I45.5 Other specified heart block (principal); I44.0 Atrioventricular block, first degree; E11.22 Type 2 diabetes mellitus with diabetic chronic kidney disease; I12.9 Hypertensive chronic kidney disease with stage 1 through stage 4 chronic kidney disease, or unspecified chronic kidney disease; N18.9 Chronic kidney disease, unspecified; E03.9 Hypothyroidism, unspecified; E86.0 Dehydration; Z79.82 Long term (current) use of aspirin
CPT/HCPCS: 36415; 36416; 71045; 78452; 80048; 80053; 82962; 83735; 84443; 84484; 85025; 93005; 93017; 93306; 94640; 99285; A9500

== ENCOUNTER 2022-02-20 14:16 | Inpatient (IN) | payer MEDICARE, SELFPAY ==
[2022-02-20] VITALS (10 sets, daily range): BP systolic 106–165; BP diastolic 73–93; PULSE 68–81; RESP 14–26; TEMP 36.4–36.6; O2SAT 93–99; BMI 22.4
[2022-02-20] MEDS: sodium chloride 0.9% 1,000 ML 999 ML IV (14:30)
--- NOTE | 2022-02-20 14:40 | XR_ITS ---
WS: [id number] Exam: XR chest 1V portable [id number] Date/Time of Exam: 02/20/2022 2:40 PM Reason For Exam: weakness Comparison 02/08/2022. The lungs are clear and fully expanded. Normal cardiomediastinal silhouette. A battery pack superimpo ses the left heart. Monitoring leads superimpose the chest. Regional bony elements are intact. XR/XR chest 1V portable [id number] IMPRESSION: 1. No acute cardiopulmonary finding.
--- NOTE | 2022-02-20 14:40 | ECG_ITS ---
[facility] Test Date: 2022-02-20 Pat Name: Isidro Mirza Department: Room: Gender: Male Investment Strategist: : 1950 Requested By: Shavonne Ulrich Order Number: [id number] Johnathan MD: Roberto Domínguez M.D. Measurements Intervals [place] Rate: 67 P: 9 MO: 181 QRS: 2 QRSD: 110 T: 138 QT: 405 QTc: 429 Interpretive Statements SINUS RHYTHM LEFT VENTRICULAR HYPERTROPHY AND ST-T CHANGE [VOLTAGE CRITERIA PLUS ST/T ABNORMALITY] Nonspecific ST-T change Compared to ECG 02/08/2022 21:59:23 Left ventricular hypertrophy now present ST (T wave) deviation now present Sinus bradycardia no longer present T-wave abnormality no longer present Electronically Signed On 02-20-2022 18:56:53 CDT by Roberto Domínguez M.D. [id number]
--- NOTE | 2022-02-20 14:46 | ED_ITS ---
HPI - General Adult General: Chief complaint: Weakness Stated complaint: FEELS BAD, FELL THIS MORNING Time Seen by Provider: 02/20/22 14:24 History of Present Illness: Patient is a 71-year-old male with a history of intermittent lightheadedness currently on continuous curriculum and instruction specialist (biotel), nephrotic syndrome presenting to emergency room for concerns of lightheadedness passing out x2. Patient was told to come to the emergency room after patient called Dr. Sheppard earlier today and passed out twice. Patient reported worsening light-headedness in the last 2 weeks. Onset:2 weeks ago, acutely today Duration:2 weeks Location:home Severity:moderate Associated symptoms: Deny chest pain, dyspnea, nausea, rash, palpitations or vomiting Review of Systems Const: Reports: other (+lightheadedness); Denies: fever(s) or chills Eyes: Denies: change in vision ENMT: Denies: mouth pain Card: Denies: chest pain or palpitations Resp: Denies: dyspnea or non-productive cough GI: Denies: abdominal pain, nausea, vomiting or diarrhea : Denies: dysuria Musc: Denies: extremity pain Skin/Breast: Denies: rash or new lesions Neuro: Reports: other (+loss of consciousness); Denies: weakness in extremities Psych: Reports: other (Normal mood) Bertrand/Lymph: Denies: easy bruising PFSH ED PFSH: Medical History Diabetes Hypertension Hypothyroidism Sinus arrest Syncopal episodes Surgical History Hx of tonsillectomy Family History Sister Pacemaker Other Diabetes Social History Smoking and tobacco status: never smoked Household members: spouse Physical Exam Const: COMMON NORMALS: alert HENMT: COMMON NORMALS: atraumatic HEAD & SCALP: atraumatic MOUTH: moist mucous membranes not abnormal Eye: COMMON NORMALS: EOMs intact bilaterally and conjunctivae normal CONJUNCTIVA: Yes conjunctivae normal Neck/C-Spine: COMMON NORMALS: full ROM and supple Resp: COMMON NORMALS: normal respiratory effort and clear to auscultation bilaterally AUSCULTATION: clear to auscultation bilaterally Cardio: COMMON NORMALS: regular rate RATE: regular rate GI: COMMON NORMALS: Soft to palpation and non-tender PALPATION: Yes Soft to palpation Extremity: COMMON NORMALS: full ROM Neuro: SENSORIUM/ORIENTATION: Yes alert MOTOR EXAM: No Abnormal motor strength present and Other motor observations present (no focal motor deficits) OTHER: Mental status? Awake, alert, and oriented to self, year, month, location, and situation.? Following simple axial and appendicular commands.? Has appropriate fund of knowledge, comprehension, and insight.? Able to recall and understands pertinent aspects of medical history and current treatment status.? ? Language? Speech is fluent without word-finding difficulties.? Intact naming, expression, spa receptionist, and repetition.? ? Cranial nerves? 2,3,4,6: PERRL, EOMI with no nystagmus. 5: Intact sensation to light touch, symmetric? 7: Smile symmetrical, no facial droop.? 8: Hearing grossly intact.? 9,10: Normal palate movement.? 11: Normal strength in trapezius bilaterally 12: Tongue protrudes midline.? ? Motor examination? Normal bulk & tone. Strength as follows (R/L): Delts (5/5), Biceps (5/5), Triceps (5/5), Wrist ext (5/5), hip flexors (5/5), plantarflexors (5/5), dorsiflexors (5/5). ? Sensation? Light Touch: Grossly intact and equal in upper and lower extremities bilaterally? Romberg: Negative.? Distal joint position sense intact ? Coordination? Gzizvh-xf-zocx-finger movements intact without dysmetria or past-pointing.? Rapid fingertaps: preserved amplitude without decriment.? No tremor, myoclonus or truncal ataxia.? ? Gait/stance? Steady, normal narrow base gait with appropriate arm swing and turning.? Tandem gait without hesitation or loss of balance. Psych: COMMON NORMALS: speech normal SPEECH: Yes normal speech MOOD & AFFECT: Yes euthymic mood Course Vital Signs: Vital signs: Vital Signs Temperature 98.2 F 02/21/22 11:22 Pulse Rate 71 02/21/22 11:22 Respiratory Rate 19 H 02/21/22 11:22 Blood Pressure 142/79 02/21/22 11:22 Pulse Oximetry 95 02/21/22 11:22 MDM - General Adult Medical Decision Making 71-year-old male with history of nephrotic syndrome, chronic cardiac monitoring presented to emergency room for concerns of elevated glucose, lightheadedness and passing out x2. On neuro exam, patient is hemodynamically stable, AOx3, neuro exam intact. Discussed with Dr. Sheppard who called Abran tells me that there is no cardiac event recorder today. It is unclear why patient passed out twice today. Patient is noted to have white count 12.0K, K of 2.5, creatinine of 2.2 similar to baseline. Patient is currently getting worked up for nephrotic syndrome. CT head is negative for any acute findings. S/p KCl replacement and 1.5L of IVF today. Disposition: admission Lab Data : 02/21/22 03:35 02/21/22 03:35 Radiology Impressions Chest X-Ray 02/20/22 14:40 IMPRESSION: 1. No acute cardiopulmonary finding. Head CT 02/20/22 14:53 IMPRESSION: 1. No evidence of intracranial hemorrhage or mass effect. 2. Mild small vessel changes. Mild parenchymal volume loss. 3. No acute intracranial findings. Laboratory Results WBC 12.0 10^3/uL (4.0-10.0) H 02/20/22 14:40 RBC 4.97 10^6/uL (4.1-5.3) 02/20/22 14:40 Hgb 13.8 g/dL (11.7-16.6) 02/20/22 14:40 Hct 40.3 % (42.0-52.0) L 02/20/22 14:40 MCV 81.1 fl (80-94) 02/20/22 14:40 MCH 27.8 pg (28.0-34.0) L 02/20/22 14:40 MCHC 34.2 g/dL (30.0-36.0) 02/20/22 14:40 RDW 14.6 % (12.1-15.1) 02/20/22 14:40 Plt Count 159 10^3/cmm (130-400) 02/20/22 14:40 MPV 11.8 fL (7.4-10.4) H 02/20/22 14:40 Neut % (Auto) 83.9 % 02/20/22 14:40 Lymph % (Auto) 5.9 % 02/20/22 14:40 Maries % (Auto) 9.1 % 02/20/22 14:40 Eos % (Auto) 0.3 % 02/20/22 14:40 Baso % (Auto) 0.2 % 02/20/22 14:40 Neut # (Auto) 10.04 10^3/uL (1.8-7.7) H 02/20/22 14:40 Lymph # (Auto) 0.7 10^3/uL (0.8-4.8) L 02/20/22 14:40 Maries # (Auto) 1.1 10^3/uL (0.2-0.9) H 02/20/22 14:40 Eos # (Auto) 0.0 10^3/uL (0.0-0.8) 02/20/22 14:40 Baso # (Auto) 0.0 10^3/uL (0.0-0.1) 02/20/22 14:40 Nucleated RBC % (auto) 0 % 02/20/22 14:40 Nucleated RBCs # 0.0 /100WBC 02/20/22 14:40 ESR 4 mm/hr (0-10) 02/20/22 14:40 D-Dimer 0.37 ug/mIFEU (0-0.59) 02/20/22 14:40 Sodium 129 mmol/L (136-145) L 02/20/22 14:40 Potassium 2.5 mmol/L (3.5-5.1) L* 02/20/22 14:40 Chloride 86 mmol/L (98-107) L 02/20/22 14:40 Carbon Dioxide 29 mmol/L (22-29) 02/20/22 14:40 Anion Gap 16.5 (5-19) 02/20/22 14:40 BUN 33 mg/dL (8-23) H 02/20/22 14:40 Creatinine 2.2 mg/dL (0.7-1.2) H 02/20/22 14:40 GFR Calculation 29.7 mL/min (90-130) L 02/20/22 14:40 Glucose 493 mg/dL (65-115) H 02/20/22 14:40 POC Glucose 379 mg/dL (70-110) H 02/20/22 17:17 Calculated Osmolality 297 mOsm/kg (285-295) H 02/20/22 14:40 Calcium 9.4 mg/dL (8.5-10.5) 02/20/22 14:40 Total Bilirubin 0.6 mg/dL (0.15-1.2) 02/20/22 14:40 AST 18 U/L (0-40) 02/20/22 14:40 ALT 21 U/L (0-41) 02/20/22 14:40 Alkaline Phosphatase 56 IU/L (40-130) 02/20/22 14:40 Troponin T Baseline 37 ng/L (0-15) H 02/20/22 14:40 Troponin T 120 Minute 37.13 ng/L (0-15) H 02/20/22 16:16 Delta Troponin T 0.13 ABS# (0-10) 02/20/22 16:16 C-Reactive Protein 3.0 mg/L (0.0-4.9) 02/20/22 14:40 NT-Pro-B Natriuret Pep 261 pg/mL (0-125) H 02/20/22 14:40 Total Protein 7.3 g/dL (6.6-8.7) 02/20/22 14:40 Albumin 4.3 g/dL (3.5-5.2) 02/20/22 14:40 Globulin 3.0 g/dL (1.3-4.6) 02/20/22 14:40 Lipase 233 U/L (13-60) H 02/20/22 14:40 TSH 0.89 uIU/mL (0.27-4.20) 02/20/22 16:16 Urine Color Yellow (Yellow) 02/20/22 14:58 Urine Appearance Clear (CLEAR) 02/20/22 14:58 Urine pH 5 (5-7) 02/20/22 14:58 Ur Specific [place] 1.010 (1.005-1.030) 02/20/22 14:58 Urine Protein Neg (Negative) 02/20/22 14:58 Urine Glucose (UA) 4+ (Normal) H 02/20/22 14:58 Urine Ketones 1+ (Negative) H 02/20/22 14:58 Urine Blood 3+ (Negative) H 02/20/22 14:58 Urine Nitrate Negative (Negative) 02/20/22 14:58 Urine Bilirubin Neg (Negative) 02/20/22 14:58 Urine Urobilinogen Norm mg/dL (Negative) 02/20/22 14:58 Ur Leukocyte Esterase Negative (Negative) 02/20/22 14:58 Urine RBC 0-4 /hpf (0-2) H 02/20/22 14:58 Urine WBC 0-4 /hpf (0-5) H 02/20/22 14:58 Ur Squamous Epith Cells 0-4 /hpf (0-5) H 02/20/22 14:58 Ur Transition Epith Cell None /hpf 02/20/22 14:58 Ur Renal Epithelial Cell N /hpf 02/20/22 14:58 Calcium Oxalate Crystal None /hpf 02/20/22 14:58 Uric Acid Crystals N /hpf 02/20/22 14:58 Triple Phos Crystals None /hpf 02/20/22 14:58 Other Crystals N /hpf 02/20/22 14:58 Amorphous Sediment Trace /hpf 02/20/22 14:58 Urine Bacteria 1+ /hpf (NONE) H 02/20/22 14:58 Hyaline Casts None /lpf 02/20/22 14:58 Fine Granular Casts 0-4 /lpf H 02/20/22 14:58 Coarse Granular Casts None /lpf 02/20/22 14:58 RBC Casts None /lpf 02/20/22 14:58 Other Casts N /lpf 02/20/22 14:58 Urine Mucus 1+ /hpf 02/20/22 14:58 Urine Trichomonas None /hpf 02/20/22 14:58 Urine Yeast None /hpf 02/20/22 14:58 Urine Sperm None /hpf 02/20/22 14:58 Ur Oval Fat Bodies None /hpf 02/20/22 14:58 Serum Ketones Negative (Negative) 02/20/22 15:00 Imaging Data Other Imaging: Radiologist's impression: [address] [address] XRay Report Signed Patient: Isidro Mirza Unit #: [id number] : 1950 Age/Sex: 71 / M ADM Date: 02/20/22 Loc: ER Room/Bed: Attending Dr: Ordering Provider/Ordering MD: Shavonne Ulrich MD Date of Service: 02/20/22 Procedure(s): XR chest 1V portable 01197 Accession Number(s): [id number] Report Number: [id number] WS: [id number] Exam: XR chest 1V portable [id number] Date/Time of Exam: 02/20/2022 2:40 PM Reason For Exam: weakness Comparison 02/08/2022. The lungs are clear and fully expanded. Normal cardiomediastinal silhouette. A battery pack superimposes the left heart. Monitoring leads superimpose the chest. Regional bony elements are intact. XR/XR chest 1V portable [id number] IMPRESSION: 1. No acute cardiopulmonary finding. ? Dictated By: Sang Quiroz DO Signed By: Sang Quiroz DO Signed Date/Time: 02/20/221457 DD/ [address] [place] [address] CT Scan Report Signed Patient: Isidro Mirza Unit #: [id number] : 1950 Age/Sex: 71 / M ADM Date: 02/20/22 Loc: ER Room/Bed: Attending Dr: Ordering Provider/Ordering MD: Shavonne Ulrich MD Date of Service: 02/20/22 Procedure(s): CT head wo con* [id number] Accession Number(s): [id number] Report Number: [id number] WS: [id number] CT HEAD TECHNIQUE: Noncontrast CT of the head obtained from the skullbase to the vertex. CLINICAL INFORMATION: ams COMPARISON: None. DLP: 872.[address] scans at [facility] use at least one of these dose optimization techniques: automated exposure control; mA and/or kV adjustment per patient size (includes targeted exams where dose is matched to clinical indication); or iterative reconstruction. FINDINGS: No evidence of intracranial hemorrhage or mass effect. Ventricular system and basal cisterns are patent. Mild small vessel changes with mild parenchymal volume loss. No extra-axial fluid collections. No evidence of mass or mass effect. Normal balbuena-white differentiation. Paranasal sinuses and mastoid air cells are well aerated. .Normal visualized soft tissues. CT/CT head wo con* [id number] IMPRESSION: ? 1.? No evidence of intracranial hemorrhage or mass effect. 2.? Mild small vessel changes. Mild parenchymal volume loss. 3.? No acute intracranial findings. ? Dictated By: Zane Dias MD Signed By: Zane Dias MD Signed Date/Time: 02/20/22 1551 DD/ 1547 Discharge Plan Discharge Patient Disposition: Admitted As Inpatient Admit Provider: Dylon Pineda Clinical Impression: Syncope and collapse, Dehydration, Acute hypokalemia, CKD (chronic kidney disea se), Acute hyperglycemia Condition: Stable Coding Level of Care Code ED Insurance Service Representative for Chg Fwd Exam Comprehensive
[2022-02-20 14:52] LABS: Basophils % 0.2 %; Eosinophils % 0.3 %; Hematocrit 40.3 % (42.0-52.0); Hemoglobin 13.8 g/dL (11.7-16.6); Lymphocytes # 0.7 10^3/uL (0.8-4.8); Lymphocytes % 5.9 %; Mean Corpuscular HGB Conc 34.2 g/dL (30.0-36.0); Mean Corpuscular Hemoglobin 27.8 pg (28.0-34.0); Mean Corpuscular Volume 81.1 fl (80-94); Mean Platelet Volume 11.8 fL (7.4-10.4); Monocytes # 1.1 10^3/uL (0.2-0.9); Monocytes % 9.1 %; Neutrophils # 10.04 10^3/uL (1.8-7.7); Neutrophils % 83.9 %; Nucleated Red Blood Cells % 0 %; Platelet Count 159 10^3/cmm (130-400); Red Blood Count 4.97 10^6/uL (4.1-5.3); Red Cell Distribution Width 14.6 % (12.1-15.1)
--- NOTE | 2022-02-20 14:53 | CT_ITS ---
WS: [id number] CT HEAD TECHNIQUE: Noncontrast CT of the head obtained from the skullbase to the vertex. CLINICAL INFORMATION: ams COMPARISON: None. DLP: 872.[address] scans at [facility] use at least one of these dose optimization techniques: automated e xposure control; mA and/or kV adjustment per patient size (includes targeted exams where dose is matc hed to clinical indication); or iterative reconstruction. FINDINGS: No evidence of intracranial hemorrhage or mass effect. Ventricular system and basal cisterns are larios nt. Mild small vessel changes with mild parenchymal volume loss. No extra-axial fluid collections. No evidence of mass or mass effect. Normal balbuena-white differentiation. Paranasal sinuses and mastoid air cells are well aerated. .Normal visualized soft tissues. CT/CT head wo con* [id number] IMPRESSION: 1. No evidence of intracranial hemorrhage or mass effect. 2. Mild small vessel changes. Mild parenchymal volume loss. 3. No acute intracranial findings.
[2022-02-20 15:03] LABS: Glucose Point of Care 476 mg/dL (70-110)
[2022-02-20 15:08] LABS: D Dimer 0.37 ug/mIFEU (0-0.59)
[2022-02-20 15:16] LABS: Troponin(5th) Baseline 37 ng/L (0-15)
[2022-02-20 15:26] LABS: Alanine Aminotransferase 21 U/L (0-41); Albumin Level 4.3 g/dL (3.5-5.2); Alkaline Phosphatase 56 IU/L (40-130); Anion Gap 16.5 (5-19); Aspartate Amino Transferase 18 U/L (0-40); Blood Urea Nitrogen 33 mg/dL (8-23); Calcium 9.4 mg/dL (8.5-10.5); Carbon Dioxide 29 mmol/L (22-29); Chloride 86 mmol/L (98-107); Glomerular Filtration Rate 29.7 mL/min (90-130); Glucose 493 mg/dL (65-115); Lipase 233 U/L (13-60); NT Pro B Type Natriuretic Pept 261 pg/mL (0-125); Osmolality Calculated 297 mOsm/kg (285-295); Sodium 129 mmol/L (136-145); Total Bilirubin 0.6 mg/dL (0.15-1.2); Total Protein 7.3 g/dL (6.6-8.7)
[2022-02-20] MEDS: sodium chloride 0.9% 500 ML IV (15:30)
[2022-02-20 15:31] LABS: Potassium 2.5 mmol/L (3.5-5.1)
[2022-02-20] MEDS: potassium chloride ER 20 mEq Tablet 40 MEQ PO ×2 (16:24→17:15)
[2022-02-20] MEDS: potassium chloride premix 100 ML 50 MEQ IV (16:26)
--- NOTE | 2022-02-20 16:40 | ECG_ITS ---
[facility] Test Date: 2022-02-20 Pat Name: Isidro Mirza Department: Room: Gender: Male Photo Finisher: : 1950 Requested By: Shavonne Ulrich Order Number: [id number] Johnathan MD: Ko Bailey M.D. Measurements Intervals [place] Rate: 69 P: 12 MI: 172 QRS: -3 QRSD: 110 T: 164 QT: 422 QTc: 455 Interpretive Statements SINUS RHYTHM LEFT VENTRICULAR HYPERTROPHY AND ST-T CHANGE [VOLTAGE CRITERIA PLUS ST/T ABNORMALITY] INFERIOR MYOCARDIAL INFARCTION , PROBABLY OLD [40+ ms Q WAVE AND/OR ST/T ABNORMALITY IN II/aVF] Compared to ECG 02/20/2022 15:24:25 Myocardial infarct finding now present ST (T wave) deviation still present Electronically Signed On 02-21-2022 22:31:36 CDT by Ko Bailey M.D. [id number]
[2022-02-20 16:44] LABS: Troponin 5 2HR 37.13 ng/L (0-15)
[2022-02-20 16:45] LABS: Ketone (Acetest) Serum Negative (Negative)
[2022-02-20 16:51] LABS: Troponin 5 2HR Delta 0.13 ABS# (0-10)
[2022-02-20] MEDS: insulin lispro 100 unit/1 mL SUBCUT (17:15)
[2022-02-20 17:24] LABS: Glucose Point of Care 379 mg/dL (70-110)
--- NOTE | 2022-02-20 18:22 | P.HP_ITS ---
Providers/Chief Complaint Primary Care Provider: Joel North MD Chief Complaint: FEELS BAD, FELL THIS MORNING History of Present Illness Isidro Mirza is a 71 year old male with a past medical history of hypothyroidism, hypertension, hyperlipidemia, CKD, history of syncope, recently admitted to [facility] for syncopal episodes, with 4-second sinus pause, negative stress test, now with an outpatient Holter in place, who presents back to clinic due to 2 episodes of syncope and presyncope, and generalized weakness. He tells me that this morning, he woke up, roughly at noon, he went up and went to the bathroom, he was trying to open up one of his medication bottles when he felt weak and passed out to the floor, the episode only lasted a second or so and he was able to get up back on his feet and try to open the bottle up again, and nearly passed out this time, he then crawled to the bed, where he laid in bed for minutes because of generalized weakness. He tells me that he has had carotid artery artery evaluation which showed less than 50% stenosis, no facial droop, no slurring of his words, no focal weakness, more generalized weakness, no seizure-like episodes, no dysuria, he has been hydrating well, no recent illness, no fevers. He tells me that Dr. North has taken him off some of his diabetic medications given his kidney disease. In the emergency room he was found to be hypokalemic, replaced through IV and p.o. In the emergency room he was found to have elevated blood sugar given insulin He was also found to have be dehydrated given fluids I was told that the ER physician spoke to Dr. North, and that the interrogation of his pacemaker did not show any acute events today Review of Systems Const: Denies: fever(s) or chills Eyes: Denies: change in vision or blurry vision ENMT: Denies: nasal congestion Resp: Denies: dyspnea, productive cough, non-productive cough or wheezing GI: Denies: abdominal pain, nausea, vomiting, hematemesis, diarrhea, constipation, hematochezia or melena : Denies: flank pain, difficulty urinating, dysuria or urinary frequency Skin/Breast: Denies: rash Neuro: Denies: headache(s) Endo: Denies: polyuria or polydipsia Medications/Allergies Home Medications Medication Instructions Recorded Confirmed Last Taken Type aspirin 81 mg chewable tablet 81 mg PO DAILY 02/08/22 02/20/22 02/20/22 History levothyroxine 50 mcg tablet 50 mcg PO DAILY 02/08/22 02/20/22 02/20/22 History linagliptin 5 mg tablet (Tradjenta) 5 mg PO DAILY 02/08/22 02/20/22 02/20/22 History rosuvastatin 40 mg tablet 40 mg PO DAILY 02/08/22 02/20/22 02/20/22 History amlodipine 10 mg tablet 10 mg PO DAILY #30 tab 02/09/22 02/20/22 02/20/22 Rx chlorthalidone 25 mg tablet 25 mg PO DAILY #30 tab 02/09/22 02/20/22 02/20/22 Rx cyanocobalamin (vitamin B-12) 50 50 mcg PO DAILY 02/20/22 02/20/22 02/20/22 History mcg tablet (Vitamin B-12) Allergies Allergy/AdvReac Type Severity Reaction Status Date / Time No Known Allergies Allergy Verified 02/20/22 15:11 PFSH Acute PFSH: Medical History Diabetes Hypertension Hypothyroidism Sinus arrest Syncopal episodes Surgical History Hx of tonsillectomy Family History Sister Pacemaker Other Diabetes Social History Smoking and tobacco status: never smoked Household members: spouse Vitals/I&O/Wt Last Vital Signs Temp 97.6 F 02/20/22 14:26 Pulse 79 02/20/22 14:26 Resp 14 02/20/22 14:26 BP 141/87 02/20/22 14:26 Pulse Ox 95 02/20/22 14:26 Weight last 48 hrs Weight 74.843 kg Physical Exam Const: COMMON NORMALS: no acute distress and patient oriented x3 HENMT: COMMON NORMALS: normocephalic HEAD & SCALP: normocephalic Eye: COMMON NORMALS: Equal, round and reactive pupils present and EOMs intact bilaterally Resp: COMMON NORMALS: normal respiratory effort, No retractions, No use of accessory muscles and clear to auscultation bilaterally AUSCULTATION: clear to auscultation bilaterally Cardio: COMMON NORMALS: regular rate, regular rhythm, S1 normal heart sound present and S2 normal heart sound present RATE: regular rate RHYTHM: regular rhythm HEART SOUNDS: S1 normal heart sound present and S2 normal heart sound present GI: COMMON NORMALS: Normal to inspection, nondistended, normoactive bowel sounds present, Soft to palpation, non-tender, No hepatosplenomegaly present, no masses and no bruits PALPATION: Yes Soft to palpation and Yes No hepatosplenomegaly present Extremity: COMMON NORMALS: capillary refill normal, no clubbing, cyanosis or edema, no calf tenderness and no pedal edema Neuro: COMMON NORMALS: patient oriented x3 Psych: COMMON NORMALS: mental status grossly normal Data : 02/20/22 14:40 02/20/22 14:40 A&P Assessment and plan (1) Syncope and collapse: Status: Acute (2) Dehydration: Status: Acute (3) Acute hypokalemia: Status: Acute (4) CKD (chronic kidney disease): Status: Acute (5) Acute hyperglycemia: Status: Acute (6) Sinus pause: Status: Acute Plan Syncope and collapse -CT of the head no acute stroke -Has had a carotid artery ultrasound which shows a less than 50% stenosis bilaterally through Dr. North office -No seizure-like episodes -EKG no acute ST-T wave changes -TSH ordered -UA ordered -He has hypokalemia, evidence of dehydration Plan -IV fluids -Perform orthostatic vitals -Telemetry monitoring -We will request patient's event monitor reports from Dr. North or company that is doing the event monitoring -Neurochecks, NIH stroke scale -Recheck BMP at 10 PM -Consult cardiology -Full code -Lovenox for DVT prophylaxis Hypokalemia, recheck BMP at 10 PM, replace p.o. and IV Dehydration, has received IV fluids Chronic kidney disease, baseline 2.2 Type 2 diabetes mellitus, low-dose sliding scale Attestations Medical Necessity Statement*: Patient requires hospitalization, outpatient with observation for syncope, collapse Coding Level of Care Code Acute Cupola Patcher for [facility] Diagnoses Syncope and collapse R55 Dehydration E86.0 Acute hypokalemia E87.6 CKD (chronic kidney disease) N18.9 Acute hyperglycemia R73.9 Sinus pause I45.5
[2022-02-20 18:53] LABS: Thyroid Stimulating Hormone 0.89 uIU/mL (0.27-4.20)
[2022-02-20 19:02] LABS: Erythrocyte Sedimentation Rate 4 mm/hr (0-10)
[2022-02-20 19:55] LABS: Bilirubin Urine Neg (Negative); Blood Urine 3+ (Negative); Glucose Urine UA 4+ (Normal); Ketones Urine 1+ (Negative); Leukocyte Esterase Urine Negative (Negative); Nitrate Urine Negative (Negative); Protein Urine Neg (Negative); Urine Appearance Clear (CLEAR); Urine Color Yellow (Yellow); Urobilinogen Urine Norm (Negative); pH Urine 5 (5-7)
[2022-02-20 19:56] LABS: Add Urine Microscopic? YES
[2022-02-20] MEDS: pantoprazole 40 mg SDV IVP (20:08)
[2022-02-20] MEDS: enoxaparin 40 mg/0.4 mL Syringe SUBCUT (20:08)
[2022-02-20 20:10] LABS: Amorphous Sediment Urine TRACE /hpf; Bacteria Urine 1+ /hpf; Mucus Urine 1+ /hpf; Other Crystals Urine N /hpf; Other Sediment, Urine N; RBC Urine 0-4 /hpf (0-2); Renal Epithelial Cells Urine N /hpf; Squamous Epithelial Cell Urine 0-4 /hpf (0-5); Uric Acid Crystals Urine N /hpf; WBC Urine 0-4 /hpf (0-5)
[2022-02-20 20:11] LABS: Add Urine Culture? No; Fine Granular Casts Urine 0-4 /lpf; Other Casts Urine N /lpf
--- NOTE | 2022-02-20 20:15 | PC.NURSE ---
1500 patient here for dizziness and reported 6 second pause, per loop recorder. Patient has had similar episodes but was called by company and referred to ED for evaluation. 1600 Patient cardiac rhythm stable with no ectopy or pauses noted. Continuous monitoring in progress. Patient reports none of the symptoms that brought him to the ED 1800 Disposition to admit. Patient and family aware. VS stable, No distress.
[2022-02-20 20:38] LABS: Glucose Point of Care 399 mg/dL (70-110)
--- NOTE | 2022-02-20 20:40 | ECG_ITS ---
[facility] Test Date: 2022-02-20 Pat Name: Isidro Mirza Department: Room: 105 Gender: Male Conservation Agent: : 1950 Requested By: Shavonne Ulrich Order Number: [id number] Johnathan MD: Ko Bailey M.D. Measurements Intervals [place] Rate: 67 P: 24 VT: 173 QRS: 18 QRSD: 107 T: 175 QT: 406 QTc: 430 Interpretive Statements SINUS RHYTHM ST DEVIATION AND MODERATE T-WAVE ABNORMALITY, CONSIDER LATERAL ISCHEMIA [-0.1+ mV T-WAVE IN I/aVL/V5/V6] Compared to ECG 02/20/2022 18:13:29 T-wave abnormality now present Possible ischemia now present Left ventricular hypertrophy no longer present ST (T wave) deviation no longer present Myocardial infarct finding no longer present Electronically Signed On 02-21-2022 22:30:27 CDT by Ko Bailey M.D. [id number]
[2022-02-20 22:12] LABS: Anion Gap 15.8 (5-19); Blood Urea Nitrogen 27 mg/dL (8-23); Calcium 9.6 mg/dL (8.5-10.5); Carbon Dioxide 27 mmol/L (22-29); Chloride 89 mmol/L (98-107); Glomerular Filtration Rate 31.4 mL/min (90-130); Glucose 370 mg/dL (65-115); Osmolality Calculated 288 mOsm/kg (285-295); Sodium 129 mmol/L (136-145)
[2022-02-20 22:13] LABS: Troponin 5 6HR 39.87 ng/L (0-15)
[2022-02-20 22:42] LABS: Troponin 5 6HR Delta 2.87 ng/L (0-12)
[2022-02-20 23:16] LABS: Potassium 2.8 mmol/L (3.5-5.1)
[2022-02-21] VITALS (11 sets, daily range): BP systolic 107–174; BP diastolic 71–92; PULSE 60–94; RESP 16–23; TEMP 36.6–37.3; O2SAT 94–96
[2022-02-21 04:14] LABS: Basophils % 0.3 %; Eosinophils # 0.2 10^3/uL (0.0-0.8); Eosinophils % 1.9 %; Hematocrit 38.5 % (42.0-52.0); Hemoglobin 12.7 g/dL (11.7-16.6); Lymphocytes # 1.3 10^3/uL (0.8-4.8); Lymphocytes % 15.1 %; Mean Corpuscular Hemoglobin 27.6 pg (28.0-34.0); Mean Corpuscular Volume 83.7 fl (80-94); Mean Platelet Volume 12.2 fL (7.4-10.4); Monocytes % 11.5 %; Neutrophils # 6.17 10^3/uL (1.8-7.7); Neutrophils % 70.9 %; Nucleated Red Blood Cells % 0 %; Platelet Count 145 10^3/cmm (130-400); Red Cell Distribution Width 14.9 % (12.1-15.1); White Blood Count 8.7 10^3/uL (4.0-10.0)
[2022-02-21 04:41] LABS: NT Pro B Type Natriuretic Pept 247 pg/mL (0-125); Procalcitonin 0.22 ng/mL (0-0.5)
[2022-02-21 04:46] LABS: Estmated Average Glucose 209; Hemoglobin A1C 8.9 % (4.0-6.0)
[2022-02-21 04:53] LABS: Alanine Aminotransferase 22 U/L (0-41); Albumin Level 4.1 g/dL (3.5-5.2); Alkaline Phosphatase 54 IU/L (40-130); Anion Gap 18.1 (5-19); Aspartate Amino Transferase 21 U/L (0-40); Blood Urea Nitrogen 33 mg/dL (8-23); Calcium 9.8 mg/dL (8.5-10.5); Carbon Dioxide 27 mmol/L (22-29); Chloride 91 mmol/L (98-107); Chol HDL Ratio 3.19 mg/dL (1.0-5.00); Cholesterol 83 mg/dL (0-200); Globulin 2.8 g/dL (1.3-4.6); Glomerular Filtration Rate 31.4 mL/min (90-130); Glucose 421 mg/dL (65-115); HDL Cholesterol 26 mg/dL (60-100); LDL Cholesterol Calculated -10 mg/dL (50-129); Magnesium 2.5 mg/dL (1.7-2.3); Osmolality Calculated 301 mOsm/kg (285-295); Phosphorus 2.5 mg/dL (2.5-4.5); Potassium 3.1 mmol/L (3.5-5.1); Sodium 133 mmol/L (136-145); Total Bilirubin 0.4 mg/dL (0.15-1.2); Total Protein 6.9 g/dL (6.6-8.7); Triglycerides 336 mg/dL (0-150)
[2022-02-21 05:32] LABS: LDL HDL Ratio -0.38 RATIO (0.00-3.22)
[2022-02-21 06:34] LABS: Glucose Point of Care 312 mg/dL (70-110)
[2022-02-21] MEDS: aspirin 81 mg Chew Tablet PO (08:12)
[2022-02-21] MEDS: docusate sodium 100 mg Capsule PO ×2 (08:12→17:20)
[2022-02-21] MEDS: amlodipine 10 mg Tablet PO (08:12)
[2022-02-21] MEDS: potassium chloride ER 20 mEq Tablet 40 MEQ PO (08:12)
[2022-02-21] MEDS: insulin lispro 100 unit/1 mL SUBCUT ×3 (08:12→17:20)
[2022-02-21] MEDS: levothyroxine 50 mcg Tablet PO (08:12)
[2022-02-21] MEDS: atorvastatin 40 mg Tablet 80 MG PO (08:12)
[2022-02-21] MEDS: polyethylene glycol 3350 Pkt 17 gm PO (09:00)
[2022-02-21] MEDS: insulin glargine 100 units/1 mL 5 UNIT SUBCUT (09:00)
--- NOTE | 2022-02-21 09:04 | PC.NURSE ---
patient is currently performing self grooming with personal electric razor.
--- NOTE | 2022-02-21 09:21 | PC.CHAP ---
Pastoral Care Encounter/Spiritual Assessment Type of Contact [] Declined frit maker visit [] Patient/Family/Request visit [] Outpatient visit [] Follow-up visit [] Physician referral [] Code/Alert [x] Routine visit [] Staff referral [] Actively dying [] Patient sleeping [] Family support [] [] Out of room [] Palliative care [] [] Receiving care in room [] Pre-surgical visit [] Trauma [] Long length of stay [] ICU visit [] Other: Relational/Emotional Strength [] Patient feels connected with others/family/visitors/staff [] Distress [] Loneliness/isolation [] Abandonment Spirituality of Patient [] Person of Elise [] Attends Restoration of their Elise [] Believes in Prayer [] Reads Bible or Restoration materials [] There are Spiritual issues to be addressed Dtp Operator Interventions [x] Prayer [x] Active listening [x] Non-anxious presence [x] Spiritual/emotional support [] Crisis/trauma care [] Spiritual counseling [] Bereavement support [] Provided bereavement packet [] Provided Bible/devotional materials [] Provided toy/stuffed animal, coloring book to patient or family member [] Provided Communion [] Anointing/[place] [] Salvation [x] Completed spiritual assessment [] Other: Impact on Illness or Injury [] Angry [] Fearful [] Anxious [] Often cries [] Exhaustion [] Unable to work [] Unable to attend protestant [] Unable to walk/stand [] Unable to read [] Unable to drive [] Unable to eat/drink [] Unable to sleep [] Unable to be with family [] Patient intubated [] Other: Summary Time spent with patient
--- NOTE | 2022-02-21 11:12 | PM.CONSULT ---
Providers/Reason For Consult Consulting Physician/Specialty*: Ko Bailey MD/ Cardiology Reason for Consult*: Syncope Requesting Physician: Dr Pineda Attending Physician: Dylon Pineda MD Primary Care Provider: Joel North MD History of Present Illness History of Present Illness Isirdo Mirza is a 71 year old male with past medical history of hypertension, hyperlipidemia, chronic kidney disease, history of syncope who was recently admitted to the hospital for for second sinus pause. Patient did not have any associated symptoms at that time. He was continued on event monitor. Yesterday patient had 2 episodes of syncope and presyncope. He felt generalized weakness. It was around noon when he went up and went to the bathroom when he felt weak and passed out. Had similar episode as few minutes later. We have received event monitor report and no events were noted. He was found to have hypokalemia. He does get orthostatic hypotension. EKG shows normal sinus rhythm. No troponin elevation. Review of Systems Const: Denies: fever(s) or chills Eyes: Denies: change in vision or blurry vision ENMT: Denies: nasal congestion Resp: Denies: dyspnea, productive cough, non-productive cough or wheezing GI: Denies: abdominal pain, nausea, vomiting, hematemesis, diarrhea, constipation, hematochezia or melena : Denies: flank pain, difficulty urinating, dysuria or urinary frequency Skin/Breast: Denies: rash Neuro: Denies: headache(s) Endo: Denies: polyuria or polydipsia Medications/Allergies Home Medications Medication Instructions Recorded Confirmed Last Taken Type aspirin 81 mg chewable tablet 81 mg PO DAILY 02/08/22 02/20/22 02/20/22 History levothyroxine 50 mcg tablet 50 mcg PO DAILY 02/08/22 02/20/22 02/20/22 History linagliptin 5 mg tablet (Tradjenta) 5 mg PO DAILY 02/08/22 02/20/22 02/20/22 History rosuvastatin 40 mg tablet 40 mg PO DAILY 02/08/22 02/20/22 02/20/22 History amlodipine 10 mg tablet 10 mg PO DAILY #30 tab 02/09/22 02/20/22 02/20/22 Rx chlorthalidone 25 mg tablet 25 mg PO DAILY #30 tab 02/09/22 02/20/2202/20/22 Rx cyanocobalamin (vitamin B-12) 50 50 mcg PO DAILY 02/20/22 02/20/22 02/20/22 History mcg tablet (Vitamin B-12) Allergies Allergy/AdvReac Type Severity Reaction Status Date / Time No Known Allergies Allergy Verified 02/20/22 15:11 Current Medications Generic Name Dose Route Start Last Admin Trade Name Daniloq PRN Reason Stop Dose Admin Amlodipine Besylate 10 mg 02/21/22 09:00 02/21/22 08:12 Amlodipine 10 Mg Tablet PO 10 mg DAILY GUANAKO Administration Aspirin 81 mg 02/21/22 09:00 02/21/22 08:12 Aspirin 81 Mg Chew Tablet PO 81 mg DAILY GUANAKO Administration Atorvastatin Calcium 80 mg 02/21/22 09:00 02/21/22 08:12 Atorvastatin 40 Mg Tablet PO 80 mg DAILY GUANAKO Administration Docusate Sodium 100 mg 02/21/22 09:00 02/21/22 08:12 Docusate Sodium 100 Mg Capsule PO 100 mg BID GUANAKO Administration Enoxaparin Sodium 40 mg 02/20/22 18:41 02/20/22 20:08 Enoxaparin 40 Mg/0.4 Ml Syringe SUBCUT 40 mg Q24H GUANAKO Administration Insulin Glargine 5 unit 02/21/22 08:00 02/21/22 09:00 Insulin Glargine 100 Units/1 Ml SUBCUT 5 unit Q12H GUANAKO Administration Insulin Human Lispro 0 unit 02/21/22 08:00 02/21/22 08:12 Insulin Lispro 100 Unit/1 Ml SUBCUT 10 unit TIDWM GUANAKO Administration Protocol Levothyroxine Sodium 50 mcg 02/21/22 09:00 02/21/22 08:12 Levothyroxine 50 Mcg Tablet PO 50 mcg DAILY GUANAKO Administration Non-Formulary Medication 50 mcg 02/21/22 09:00 02/21/22 09:01 Cyanocobalamin (Vitamin B-12) [Vitamin B-12] PO Not Given DAILY GUANAKO Pantoprazole Sodium 40 mg 02/20/22 19:00 02/20/22 20:08 Pantoprazole 40 Mg Sdv IVP 40 mg Q24H GUANAKO Administration PFSH Acute PFSH: Medical History Diabetes Hypertension Hypothyroidism Sinus arrest Syncopal episodes Surgical History Hx of tonsillectomy Family History Sister Pacemaker Other Diabetes Social History Smoking and tobacco status: never smoked Household members: spouse Vitals/I&O/Wt Last Vital Signs Temp 98.0 F 02/21/22 07:12 Pulse 60 02/21/22 07:12 Resp 16 02/21/22 07:12 BP 174/92 02/21/22 07:12 Pulse Ox 95 02/21/22 07:12 02/20/22 02/21/22 02/21/22 22:59 06:59 14:59 Intake Total 2019 200 / 2220 240 / 240 Output Total 300 / 300 480 / 480 Balance 2019 -100 / 1920 -240 / -240 Weight last 48 hrs Weight 173 lb 4.8 oz Weight 165 lb Physical Exam Narrative: GENERAL: Patient is alert, awake and oriented x3. [] NECK: No jugular vein distension. [] HEENT: No cyanosis. No icterus. No pallor. [] HEART: Regular S1 and S2. No murmur, rub or gallop. [] LUNGS: Clear to auscultate bilaterally. [] ABDOMEN: Soft, nontender and nondistended. Positive bowel sounds. No guarding, rebound or tenderness. [] CENTRAL NERVOUS SYSTEM: Grossly nonfocal. [] EXTREMITIES: Lower extremities with no edema bilaterally. Pulses palpable in the lower extremities, both dorsalis pedis and posterior tibial. [] Data : 02/22/22 04:56 02/22/22 04:56 A&P Assessment and plan (1) Orthostatic hypotension: Status: Acute (2) Syncope and collapse: Status: Acute (3) Dehydration: Status: Acute (4) Acute hypokalemia: Status: Acute (5) CKD (chronic kidney disease): Status: Acute Plan Patient has presented with syncopal episode. This is likely secondary to orthostatic hypotension. No association with arrhythmias or pauses. Tele monitoring IV fluids Replace potassium Recent cardiac testing has been negative Thank you for involving us with care of this patient. We will continue to follow. Please call with questions Consult Attestations Medical Necessity Statement: Care expected to cross 2 midnights Coding Level of Care Code Acute Computer Technology Trainer for Lm Thomas Diagnoses Orthostatic hypotension I95.1 Syncope and collapse R55 Dehydration E86.0 Acute hypokalemia E87.6 CKD (chronic kidney disease) N18.9
[2022-02-21 12:07] LABS: Glucose Point of Care 357 mg/dL (70-110)
--- NOTE | 2022-02-21 13:58 | PC.NURSE ---
received report from Azalia. Reviewed poc and assumed care of patient.
--- NOTE | 2022-02-21 14:13 | P.PN_ITS ---
Subjective Subjective: This morning patient was seen, no episodes of passing out throughout the night, no lightheadedness, no dizziness, no nausea, no vomiting Vitals/I&O/Wt Last Vital Signs Temp 98.2 F 02/21/22 11:22 Pulse 71 02/21/22 11:22 Resp 19 H 02/21/22 11:22 BP 142/79 02/21/22 11:22 Pulse Ox 95 02/21/22 11:22 02/20/22 02/21/22 02/21/22 22:59 06:59 14:59 Intake Total 2019 200 / 2220 480 / 480 Output Total 300 / 300 480 / 480 Balance 2019 -100 / 1920 0 / 0 Weight last 48 hrs Weight 78.608 kg Weight 74.843 kg Physical Exam Const: COMMON NORMALS: no acute distress and patient oriented x3 Resp: COMMON NORMALS: normal respiratory effort, No retractions, No use of accessory muscles and clear to auscultation bilaterally AUSCULTATION: clear to auscultation bilaterally Cardio: COMMON NORMALS: regular rate, regular rhythm, S1 normal heart sound present and S2 normal heart sound present RATE: regular rate RHYTHM: regular rhythm HEART SOUNDS: S1 normal heart sound present and S2 normal heart sound present GI: COMMON NORMALS: Normal to inspection, nondistended, normoactive bowel sounds present, Soft to palpation and non-tender PALPATION: Yes Soft to palpation Extremity: COMMON NORMALS: no pedal edema Neuro: COMMON NORMALS: patient oriented x3 Psych: COMMON NORMALS: mental status grossly normal Data : 02/21/22 03:35 02/21/22 03:35 A&P Assessment and plan (1) Orthostatic hypotension: Status: Acute (2) Syncope and collapse: Status: Acute (3) Dehydration: Status: Acute (4) Acute hypokalemia: Status: Acute (5) CKD (chronic kidney disease): Status: Acute (6) Acute hyperglycemia: Status: Acute (7) Sinus pause: Status: Acute Plan Syncope and collapse -CT of the head no acute stroke -Has had a carotid artery ultrasound which shows a less than 50% stenosis bilaterally through Dr. North office -No seizure-like episodes -EKG no acute ST-T wave changes -TSH within normal limits -UA no significant evidence of UTI -Review of patient's event monitor does not show any events in the last 2 days -He is orthostatic positive Plan -IV fluids -Replace potassium -Telemetry monitoring -Neurochecks, NIH stroke scale -Recheck BMP tomorrow morning -Consult cardiology -Full code -Lovenox for DVT prophylaxis Hypokalemia, replace, recheck tomorrow morning Dehydration, has received IV fluids Chronic kidney disease, baseline 2.2 Type 2 diabetes mellitus, low-dose sliding scale, Lantus 10 units twice daily Attestations Medical Necessity Statement*: Patient requires hospitalization for orthostatic hypotension, syncope, hypokalemia, requiring IV fluids, potassium replacement, repeat blood pressure monitoring, inpatient, greater than 2 midnights Coding Level of Care Code Acute Service Promoter Salesperson for Lm Thomas Diagnoses Orthostatic hypotension I95.1 Syncope and collapse R55 Dehydration E86.0 Acute hypokalemia E87.6 CKD (chronic kidney disease) N18.9 Acute hyperglycemia R73.9 Sinus pause I45.5
[2022-02-21 16:09] LABS: Glucose Point of Care 340 mg/dL (70-110)
[2022-02-21] MEDS: sodium chloride 0.9% 1,000 ML 100 ML IV ×2 (16:16→23:46)
[2022-02-21] MEDS: pantoprazole 40 mg SDV IVP (17:19)
[2022-02-21] MEDS: enoxaparin 40 mg/0.4 mL Syringe SUBCUT (17:20)
[2022-02-21 19:37] LABS: Glucose Point of Care 438 mg/dL (70-110)
[2022-02-21] MEDS: insulin glargine 100 units/1 mL 10 UNIT SUBCUT (20:09)
[2022-02-22] VITALS (8 sets, daily range): BP systolic 119–154; BP diastolic 76–84; PULSE 54–77; RESP 16–24; TEMP 36.6–36.9; O2SAT 93–95
[2022-02-22 05:33] LABS: Basophils % 0.5 %; Eosinophils # 0.2 10^3/uL (0.0-0.8); Eosinophils % 2.7 %; Hematocrit 36.2 % (42.0-52.0); Hemoglobin 11.9 g/dL (11.7-16.6); Lymphocytes # 1.5 10^3/uL (0.8-4.8); Mean Corpuscular HGB Conc 32.9 g/dL (30.0-36.0); Mean Corpuscular Hemoglobin 27.9 pg (28.0-34.0); Monocytes # 0.8 10^3/uL (0.2-0.9); Monocytes % 9.4 %; Neutrophils # 5.54 10^3/uL (1.8-7.7); Neutrophils % 68.9 %; Nucleated Red Blood Cells % 0 %; Platelet Count 129 10^3/cmm (130-400); Red Blood Count 4.26 10^6/uL (4.1-5.3); Red Cell Distribution Width 14.8 % (12.1-15.1); White Blood Count 8.1 10^3/uL (4.0-10.0)
[2022-02-22 05:46] LABS: Alanine Aminotransferase 19 U/L (0-41); Albumin Level 3.6 g/dL (3.5-5.2); Alkaline Phosphatase 47 IU/L (40-130); Anion Gap 13.5 (5-19); Aspartate Amino Transferase 21 U/L (0-40); Blood Urea Nitrogen 26 mg/dL (8-23); Calcium 8.5 mg/dL (8.5-10.5); Carbon Dioxide 27 mmol/L (22-29); Chloride 99 mmol/L (98-107); Globulin 2.9 g/dL (1.3-4.6); Glomerular Filtration Rate 37.5 mL/min (90-130); Glucose 175 mg/dL (65-115); Magnesium 2.1 mg/dL (1.7-2.3); Osmolality Calculated 293 mOsm/kg (285-295); Phosphorus 3.1 mg/dL (2.5-4.5); Sodium 137 mmol/L (136-145); Total Bilirubin 0.4 mg/dL (0.15-1.2); Total Protein 6.5 g/dL (6.6-8.7)
[2022-02-22 05:50] LABS: Potassium 2.5 mmol/L (3.5-5.1)
[2022-02-22 06:14] LABS: Glucose Point of Care 163 mg/dL (70-110)
[2022-02-22] MEDS: potassium chloride ER 20 mEq Tablet 40 MEQ PO (06:19)
[2022-02-22] MEDS: insulin lispro 100 unit/1 mL SUBCUT ×3 (07:26→18:20)
[2022-02-22] MEDS: insulin glargine 100 units/1 mL 10 UNIT SUBCUT ×2 (07:27→20:35)
[2022-02-22] MEDS: aspirin 81 mg Chew Tablet PO (08:33)
[2022-02-22] MEDS: docusate sodium 100 mg Capsule PO ×2 (08:33→18:29)
[2022-02-22] MEDS: atorvastatin 40 mg Tablet 80 MG PO (08:33)
[2022-02-22] MEDS: levothyroxine 50 mcg Tablet PO (08:34)
[2022-02-22] MEDS: amlodipine 10 mg Tablet PO (08:34)
[2022-02-22] MEDS: lidocaine 1% 5 ML in potassium chloride premix 100 ML 25 ML IV ×2 (09:31→13:39)
[2022-02-22] MEDS: polyethylene glycol 3350 Pkt 17 gm PO (09:31)
[2022-02-22] MEDS: sodium chloride 0.9% 1,000 ML 100 ML IV ×2 (09:37→20:36)
--- NOTE | 2022-02-22 10:17 | PC.CHAP ---
Pastoral Care Encounter/Spiritual Assessment Type of Contact [x] Declined eye care professional visit [] Patient/Family/Request visit [] Outpatient visit [] Follow-up visit [] Physician referral [] Code/Alert [] Routine visit [] Staff referral [] Actively dying [] Patient sleeping [] Family support [] [] Out of room [] Palliative care [] [] Receiving care in room [] Pre-surgical visit [] Trauma [] Long length of stay [] ICU visit [] Other: Relational/Emotional Strength [] Patient feels connected with others/family/visitors/staff [] Distress [] Loneliness/isolation [] Abandonment Spirituality of Patient [] Person of Elise [] Attends Protestant of their Elise [] Believes in Prayer [] Reads Bible or Holiness materials [] There are Spiritual issues to be addressed Clinical Researcher Interventions [] Prayer [] Active listening [] Non-anxious presence [] Spiritual/emotional support [] Crisis/trauma care [] Spiritual counseling [] Bereavement support [] Provided bereavement packet [] Provided Bible/devotional materials [] Provided toy/stuffed animal, coloring book to patient or family member [] Provided Communion [] Anointing/[place] [] Salvation [] Completed spiritual assessment [] Other: Impact on Illness or Injury [] Angry [] Fearful [] Anxious [] Often cries [] Exhaustion [] Unable to work [] Unable to attend yarsani [] Unable to walk/stand [] Unable to read [] Unable to drive [] Unable to eat/drink [] Unable to sleep [] Unable to be with family [] Patient intubated [] Other: Summary Declined eye care professional visit Time spent with patient 5 mins
--- NOTE | 2022-02-22 10:31 | P.PN_ITS ---
Subjective Subjective: He hasPatient was seen this morning, he remains orthostatic positive, potassium 2.5, no chest pain, no palpitations, no episodes of passing out, he does tell me that he feels better, lost 15 pounds in the last few weeks he is not exactly sure why Vitals/I&O/Wt Last Vital Signs Temp 98.1 F 02/22/22 07:13 Pulse 61 02/22/22 07:13 Resp 22 H 02/22/22 07:13 BP 142/80 02/22/22 07:13 Pulse Ox 95 02/22/22 07:13 02/21/22 02/22/22 02/22/22 22:59 06:59 14:59 Intake Total 750 / 1230 1465 / 1465 Output Total 620 / 1100 1000 / 2100 350 / 350 Balance -620 / -620 -250 / -870 1115 / 1115 Weight last 48 hrs Weight 78.608 kg Weight 74.843 kg Physical Exam Const: COMMON NORMALS: no acute distress and patient oriented x3 Resp: COMMON NORMALS: normal respiratory effort, No retractions, No use of accessory muscles and clear to auscultation bilaterally AUSCULTATION: clear to auscultation bilaterally Cardio: COMMON NORMALS: regular rate, regular rhythm, S1 normal heart sound present and S2 normal heart sound present RATE: regular rate RHYTHM: regular rhythm HEART SOUNDS: S1 normal heart sound present and S2 normal heart sound present GI: COMMON NORMALS: Normal to inspection, nondistended, normoactive bowel sounds present, Soft to palpation and non-tender PALPATION: Yes Soft to palpation Extremity: COMMON NORMALS: no pedal edema Neuro: COMMON NORMALS: patient oriented x3 Psych: COMMON NORMALS: mental status grossly normal Data : 02/22/22 04:56 02/22/22 04:56 A&P Assessment and plan (1) Orthostatic hypotension: Status: Acute (2) Syncope and collapse: Status: Acute (3) Dehydration: Status: Acute (4) Acute hypokalemia: Status: Acute (5) CKD (chronic kidney disease): Status: Acute (6) Acute hyperglycemia: Status: Acute (7) Sinus pause: Status: Acute Plan Syncope and collapse -CT of the head no acute stroke -Has had a carotid artery ultrasound which shows a less than 50% stenosis bilaterally through Dr. North office -No seizure-like episodes -EKG no acute ST-T wave changes -TSH within normal limits -UA no significant evidence of UTI -Review of patient's event monitor does not show any events in the last 2 days -Remained stable orthostatic positive, hypokalemic Plan -IV fluids -Replace potassium -Telemetry monitoring -Neurochecks, NIH stroke scale -Recheck BMP tomorrow this afternoon -Consult cardiology -Full code -Lovenox for DVT prophylaxis Hypokalemia, replace, Dehydration, has received IV fluids Chronic kidney disease, baseline 1.8 Type 2 diabetes mellitus, low-dose sliding scale, Lantus 10 units twice daily Attestations Medical Necessity Statement*: Patient requires hospitalization for persistent orthostatic hypotension, severe hypokalemia Coding Level of Care Code Acute Lotus Notes Developer for Chg Fwd Diagnoses Orthostatic hypotension I95.1 Syncope and collapse R55 Dehydration E86.0 Acute hypokalemia E87.6 CKD (chronic kidney disease) N18.9 Acute hyperglycemia R73.9 Sinus pause I45.5
[2022-02-22 11:43] LABS: Glucose Point of Care 395 mg/dL (70-110)
[2022-02-22 12:19] LABS: Add Urine Culture? No; Add Urine Microscopic? YES; Bilirubin Urine Neg (Negative); Blood Urine 2+ (Negative); Glucose Urine UA 4+ (Normal); Ketones Urine Negative (Negative); Leukocyte Esterase Urine Negative (Negative); Nitrate Urine Negative (Negative); Protein Urine Neg (Negative); RBC Urine RARE /hpf (0-2); Specific Gravity, Urine 1.005 (1.005-1.030); Squamous Epithelial Cell Urine 0-4 /hpf (0-5); Urine Appearance Clear (CLEAR); Urine Color Yellow (Yellow); Urobilinogen Urine Neg (Negative); WBC Urine 0-4 /hpf (0-5); pH Urine 7 (5-7)
--- NOTE | 2022-02-22 12:27 | PM.PN ---
Subjective Subjective: Patient is feeling well. No syncopal, presyncopal episodes Vitals/I&O/Wt Last Vital Signs Temp 98.1 F 02/22/22 07:13 Pulse 61 02/22/22 07:13 Resp 22 H 02/22/22 07:13 BP 142/80 02/22/22 07:13 Pulse Ox 95 02/22/22 07:13 02/21/22 02/22/22 02/22/22 22:59 06:59 14:59 Intake Total 750 / 1230 1465 / 1465 Output Total 620 / 1100 1000 / 2100 350 / 350 Balance -620 / -620 -250 / -870 1115 / 1115 Weight last 48 hrs Weight 173 lb 4.8 oz Weight 165 lb Physical Exam Narrative: GENERAL: Patient is alert, awake and oriented x3. [] NECK: No jugular vein distension. [] HEENT: No cyanosis. No icterus. No pallor. [] HEART: Regular S1 and S2. No murmur, rub or gallop. [] LUNGS: Clear to auscultate bilaterally. [] ABDOMEN: Soft, nontender and nondistended. Positive bowel sounds. No guarding, rebound or tenderness. [] CENTRAL NERVOUS SYSTEM: Grossly nonfocal. [] EXTREMITIES: Lower extremities with no edema bilaterally. Pulses palpable in the lower extremities, both dorsalis pedis and posterior tibial. [] Data : 02/23/22 04:18 02/23/22 04:18 A&P Assessment and plan (1) Orthostatic hypotension: Status: Resolved (2) Syncope and collapse: Status: Resolved (3) Dehydration: Status: Resolved (4) Acute hypokalemia: Status: Resolved (5) CKD (chronic kidney disease): Status: Acute Plan Patient has presented with syncopal episode. This is likely secondary to orthostatic hypotension. No association with arrhythmias or pauses. Tele monitoring not showing any further pauses. IV fluids Replace potassium. There is plan for nephrology work-up planned as outpatient as he has an upcoming appointment with Dr Muhammad Recent cardiac testing has been negative Thank you for involving us with care of this patient. We will continue to follow. Please call with questions Attestations Medical Necessity Statement*: Care expected to cross 2 midnights. Coding Level of Care Code Acute Privacy Officer for Chg Fwd Diagnoses Orthostatic hypotension I95.1 Syncope and collapse R55 Dehydration E86.0 Acute hypokalemia E87.6 CKD (chronic kidney disease) N18.9
--- NOTE | 2022-02-22 13:58 | PC.OT ---
OT services withheld this date. Nursing reports, patient is positive for Orthostatic Hypotension where the blood pressure drops 20 points when standing up and having sycope episodes.
[2022-02-22 16:19] LABS: Alanine Aminotransferase 20 U/L (0-41); Albumin Level 3.6 g/dL (3.5-5.2); Alkaline Phosphatase 44 IU/L (40-130); Amylase 154 U/L (28-100); Aspartate Amino Transferase 24 U/L (0-40); Blood Urea Nitrogen 25 mg/dL (8-23); Calcium 8.8 mg/dL (8.5-10.5); Carbon Dioxide 21 mmol/L (22-29); Chloride 101 mmol/L (98-107); Globulin 2.1 g/dL (1.3-4.6); Glomerular Filtration Rate 35.2 mL/min (90-130); Glucose 241 mg/dL (65-115); Lipase 235 U/L (13-60); Magnesium 1.9 mg/dL (1.7-2.3); Osmolality Calculated 290 mOsm/kg (285-295); Phosphorus 1.6 mg/dL (2.5-4.5); Sodium 134 mmol/L (136-145); Total Bilirubin 0.3 mg/dL (0.15-1.2); Total Protein 5.7 g/dL (6.6-8.7)
[2022-02-22 16:20] LABS: Anion Gap 15.8 (5-19); Potassium 3.8 mmol/L (3.5-5.1)
[2022-02-22 16:44] LABS: Glucose Point of Care 210 mg/dL (70-110)
[2022-02-22] MEDS: pantoprazole 40 mg SDV IVP (18:25)
[2022-02-22] MEDS: enoxaparin 40 mg/0.4 mL Syringe SUBCUT (18:28)
[2022-02-22 19:38] LABS: Urine Protein Random 29 mg/dL
[2022-02-23] VITALS: BP 144/79; PULSE 61; RESP 15; TEMP 36.8; O2SAT 92
[2022-02-23 04:00] VITALS: BP 138/79; PULSE 62; RESP 16; TEMP 36.4; O2SAT 97
[2022-02-23 05:08] LABS: Basophils % 0.7 %; Eosinophils # 0.2 10^3/uL (0.0-0.8); Eosinophils % 4.1 %; Hematocrit 33.7 % (42.0-52.0); Lymphocytes # 1.2 10^3/uL (0.8-4.8); Lymphocytes % 20.3 %; Mean Corpuscular HGB Conc 32.6 g/dL (30.0-36.0); Mean Corpuscular Hemoglobin 27.4 pg (28.0-34.0); Mean Corpuscular Volume 83.8 fl (80-94); Mean Platelet Volume 12.5 fL (7.4-10.4); Monocytes # 0.6 10^3/uL (0.2-0.9); Monocytes % 9.9 %; Neutrophils # 3.81 10^3/uL (1.8-7.7); Neutrophils % 64.8 %; Nucleated Red Blood Cells % 0 %; Platelet Count 122 10^3/cmm (130-400); Red Blood Count 4.02 10^6/uL (4.1-5.3); Red Cell Distribution Width 15.2 % (12.1-15.1); White Blood Count 5.9 10^3/uL (4.0-10.0)
[2022-02-23 05:32] LABS: Alanine Aminotransferase 20 U/L (0-41); Albumin Level 3.4 g/dL (3.5-5.2); Alkaline Phosphatase 45 IU/L (40-130); Anion Gap 13.1 (5-19); Aspartate Amino Transferase 22 U/L (0-40); Blood Urea Nitrogen 24 mg/dL (8-23); Calcium 7.8 mg/dL (8.5-10.5); Carbon Dioxide 25 mmol/L (22-29); Chloride 105 mmol/L (98-107); Globulin 2.7 g/dL (1.3-4.6); Glomerular Filtration Rate 42.9 mL/min (90-130); Glucose 146 mg/dL (65-115); Magnesium 1.9 mg/dL (1.7-2.3); Osmolality Calculated 297 mOsm/kg (285-295); Phosphorus 2.7 mg/dL (2.5-4.5); Potassium 3.1 mmol/L (3.5-5.1); Sodium 140 mmol/L (136-145); Total Bilirubin 0.4 mg/dL (0.15-1.2); Total Protein 6.1 g/dL (6.6-8.7)
[2022-02-23 05:54] VITALS: PULSE 66
[2022-02-23] MEDS: sodium chloride 0.9% 1,000 ML 100 ML IV (06:44)
--- NOTE | 2022-02-23 07:53 | CT_ITS ---
WS: [id number] CT ABDOMEN AND PELVIS NONCONTRAST HISTORY: elevated lipase TECHNIQUE: Imaging performed through the abdomen and pelvis. Coronal and sagittal reformats are submi tted. All CT scans at [facility] use at least one of these dose optimization techniques: auto mated exposure control; mA and/or kV adjustment per patient size (includes targeted exams where dose is matched to clinical indication); or iterative reconstruction. DLP: 1179.51 mGy.cm COMPARISON: None available. Lower thorax: Lung bases are clear. Visualized heart is normal. Small hiatal hernia. Liver: Normal size liver. Low-attenuation throughout with decreased Hounsfield units consistent with hepatic steatosis. No bile duct dilatation. Gallbladder: There is dense irregular calcification in the location of the gallbladder fossa. No hist ory of a prior cholecystectomy. This calcified mass measures approximately 4.2 x 1.9 cm and is irregu larly shaped. Dense calcification was also noted in the gallbladder fossa on a prior ultrasound of 11/07/2021. Pancreas: Normal size and attenuation. Normal pancreatic duct. No pancreatitis or mass. Spleen: Normal. Adrenal glands: Normal. No mass. Right kidney: Normal size kidney with no mass or hydronephrosis. Left kidney: Normal size kidney with no mass or hydronephrosis. Aorta: Atherosclerotic plaque within the aorta. No aneurysm. No significant plaque burden at the orig ins of the SMA or celiac axis. No free fluid, intraperitoneal air or significant lymphadenopathy. GI tract: Moderate distention of the stomach with food products and fluid and air. No small bowel dil atation. Moderate diffuse fecal retention. Normal appendix. No mucosal thickening or submucosal edema . Abdominal wall: Negative. No hernia. Pelvis: No free fluid in the pelvis. Moderate distention of the urinary bladder. Prostate gland is ve ry mildly lobulated and encroaching into the base of the urinary bladder. There are also extensive va s deferens calcifications. Seminal vesicle calcifications are also noted. Osseous structures: 2 mm anterolisthesis of L5. Bilateral L5 pars defects. CT/CT abdomen pelvis wo con [id number] IMPRESSION: 1. No acute abdominal or pelvic abnormalities. 2. No evidence for acute pancreatitis. 3. Dense coarse lobulated calcification the gallbladder fossa. No history of a cholecystectomy. Dense shadowing calcification was also noted in the gallbladd er fossa on a prior ultrasound from 11/07/2021. Due to the CT appearance this is most consistent with a densely calcified gallbladder. Calcification is more ext ensive than a porcelain gallbladder. This may be a stone filled contracted gall bladder but no identifiable wall or lumen is evident. 4. No bile duct dilatation. 5. Hepatic steatosis. 6. Constipation, diffuse. 7. Normal appendix. 8. Seminal vesicle and vas deferences calcifications.
--- NOTE | 2022-02-23 08:18 | PC.NURSE ---
received report from heriberto snow. reviewed poc, pt states that he is comfortable and has no needs at this time. assumed care of patient.
--- NOTE | 2022-02-23 08:23 | PC.NURSE ---
received bedside report from heriberto snow. Pt presenting with sob, tachypnea, tachycardia. respiratory called, morphine given, pt had an episode of incontinence of bowel and bladder. Pt cleaned up and linens changed. repiratory arriving at bedside as I left room. Reviewed poc and assumed care of patient.
[2022-02-23] MEDS: potassium chloride ER 20 mEq Tablet 40 MEQ PO (08:35)
[2022-02-23] MEDS: polyethylene glycol 3350 Pkt 17 gm PO (08:36)
[2022-02-23] MEDS: docusate sodium 100 mg Capsule PO (08:36)
[2022-02-23] MEDS: levothyroxine 50 mcg Tablet PO (08:36)
[2022-02-23] MEDS: insulin glargine 100 units/1 mL 10 UNIT SUBCUT (08:36)
[2022-02-23] MEDS: atorvastatin 40 mg Tablet 80 MG PO (08:36)
[2022-02-23] MEDS: aspirin 81 mg Chew Tablet PO (08:36)
[2022-02-23] MEDS: insulin lispro 100 unit/1 mL SUBCUT (08:36)
[2022-02-23 09:23] VITALS: BP 148/85; BP 149/88; BP 161/89
[2022-02-23 09:31] LABS: Glucose Point of Care 140 mg/dL (70-110)
[2022-02-23 09:32] LABS: Glucose Point of Care 159 mg/dL (70-110)
[2022-02-23 09:44] VITALS: BP 149/88; PULSE 66; RESP 19; O2SAT 96
--- NOTE | 2022-02-23 10:04 | P.DS_ITS ---
Discharge Providers Date of Admission: 02/21/22 16:42 Date of Discharge: February 23, 2022 Attending Provider at Admission: Dylon Pineda MD Attending Provider at Discharge: Dylon Pineda MD Primary Care Provider: Joel North MD Diagnoses at Discharge Discharge Diagnosis (1) Orthostatic hypotension: Status: Acute (2) Syncope and collapse: Status: Acute (3) Dehydration: Status: Acute (4) Acute hypokalemia: Status: Acute (5) CKD (chronic kidney disease): Status: Acute Reason for Visit Reason for Visit: FEELS BAD, FELL THIS MORNING Hospital Course Hospital Course Isidro Mirza is a 71 year old male with a past medical history of hypothyroidism, hypertension, hyperlipidemia, CKD, history of syncope, recently admitted to [facility] for syncopal episodes, with 4-second sinus pause, negative stress test, now with an outpatient Holter in place, who presents back to clinic due to 2 episodes of syncope and presyncope, and generalized weakness.? Patient was admitted to [facility] for syncope, CT head with no acute stroke, carotid artery ultrasound less than 50% stenosis, no seizure-like episodes, no EKG changes, TSH within normal limits, UA with evidence of UTI, cardiology was consulted, event monitor showed no acute events. Likely patient syncopal episodes most from orthostatic hypotension, hypokalemia, possibly chlorthalidone related ? received IV fluids, potassium replacement therapy. Patient clinically improved, orthostats improved, clinically patient improved. Discharge instructions to discontinue chlorthalidone. Hydrate well, at least 2 L a day including electrolyte balance fluids. Discharge insulin therapy. Follow-up with Dr. North as outpatient. Follow-up with Dr. Muhammad as outpatient, patient has new onset CKD, with nephrotic range proteinuria, Dr. Muhammad is considering a renal biopsy, will have him follow-up. In addition I shi ve ordered the 24-hour urine studies which are pending, follow-up with Dr. North and Dr. Muhammad with results as outpatient -Drink plenty of electrolyte balanced fluids, at least 2 L a day, with elect rolytes such as Gatorade or Powerade preferably sugar-free version -Inject Lantus 10 units twice daily, every 12 hours -Inject NovoLog, subcu, 3 times daily, after meals, based on sliding scale provided -Do not inject insulin if you do not eat -If your blood sugar is greater than 500 call primary care -If blood sugar less than 60 drink or juice or heat or hard candy go to emergency room -Record blood sugars, bring to primary care provider Insulin sliding fingerstick? Insulin 141-180?2 units/sq 181-220?4 units/sq 221-260?6 units/sq 261-300?8 units/sq 301-350 10 units/sq 351-400 12 units/sq > 400? 14 units/sq -Follow-up with Dr. Muhammad CT scan shows 1.? No acute abdominal or pelvic abnormalities. 2.? No evidence for acute pancreatitis. 3.? Dense coarse lobulated calcification the gallbladder fossa. No history of a cholecystectomy. Dense shadowing calcification was also noted in the gallbladder fossa on a prior ultrasound from 11/07/2021. Due to the CT appearance this is most consistent with a densely calcified gallbladder. Calcification is more extensive than a porcelain gallbladder. This may be a stone filled contracted gallbladder but no identifiable wall or lumen is evident. 4.? No bile duct dilatation. 5.? Hepatic steatosis. 6.? Constipation, diffuse. 7.? Normal appendix. 8.? Seminal vesicle and vas deferences calcifications. 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 -Will refer to general surgery for consideration of surgical intervention Physical Exam Const: COMMON NORMALS: no acute distress and patient oriented x3 Cardio: COMMON NORMALS: regular rate, regular rhythm, S1 normal heart sound present and S2 normal heart sound present RATE: regular rate RHYTHM: regular rhythm HEART SOUNDS: S1 normal heart sound present and S2 normal heart sound present GI: COMMON NORMALS: Normal to inspection, nondistended, normoactive bowel sounds present, Soft to palpation, non-tender and No hepatosplenomegaly present PALPATION: Yes Soft to palpation and Yes No hepatosplenomegaly present Extremity: COMMON NORMALS: no clubbing, cyanosis or edema and no pedal edema Neuro: COMMON NORMALS: patient oriented x3 Psych: COMMON NORMALS: mental status grossly normal Discharge Data Studies Completed and Pending Completed Studies During Hospitalization Category Date Time Status CT head wo con* 13284 Urgent Cat Scan 02/20/22 14:53 Completed XR chest 1V portable 20063 Urgent Exams 02/20/22 14:40 Completed Pending at discharge Category Date Time Status CT abdomen pelvis wo con [id number] Stat Cat Scan 02/23/22 07:53 Taken [place] Free Light Chains Urine Stat Lab 02/22/22 14:26 Uncollected Osmolality Urine Stat Lab 02/22/22 14:24 Uncollected Potassium, 24 Hour Urine Routine Lab 02/22/22 14:24 Uncollected Sodium, 24 HR Urine Routine Lab 02/22/22 14:24 Uncollected Total Protein 24 Hour Urine Routine Lab 02/22/22 14:24 Uncollected Urine Eosinophils Routine Lab 02/22/22 14:24 Uncollected Urine Protein Electrop Random Routine Lab 02/22/22 16:20 Received Radiology Impressions Chest X-Ray 02/20/22 14:40 IMPRESSION: 1. No acute cardiopulmonary finding. Head CT 02/20/22 14:53 IMPRESSION: 1. No evidence of intracranial hemorrhage or mass effect. 2. Mild small vessel changes. Mild parenchymal volume loss. 3. No acute intracranial findings. Laboratory Results WBC 5.9 10^3/uL (4.0-10.0) 02/23/22 04:18 RBC 4.02 10^6/uL (4.1-5.3) L 02/23/22 04:18 Hgb 11.0 g/dL (11.7-16.6) L 02/23/22 04:18 Hct 33.7 % (42.0-52.0) L 02/23/22 04:18 MCV 83.8 fl (80-94) 02/23/22 04:18 MCH 27.4 pg (28.0-34.0) L 02/23/22 04:18 MCHC 32.6 g/dL (30.0-36.0) 02/23/22 04:18 RDW 15.2 % (12.1-15.1) H 02/23/22 04:18 Plt Count 122 10^3/cmm (130-400) L 02/23/22 04:18 MPV 12.5 fL (7.4-10.4) H 02/23/22 04:18 Neut % (Auto) 64.8 % 02/23/22 04:18 Lymph % (Auto) 20.3 % 02/23/22 04:18 [place] % (Auto) 9.9 % 02/23/22 04:18 Eos % (Auto) 4.1 % 02/23/22 04:18 Baso % (Auto) 0.7 % 02/23/22 04:18 Neut # (Auto) 3.81 10^3/uL (1.8-7.7) 02/23/22 04:18 Lymph # (Auto) 1.2 10^3/uL (0.8-4.8) 02/23/22 04:18 [place] # (Auto) 0.6 10^3/uL (0.2-0.9) 02/23/22 04:18 Eos # (Auto) 0.2 10^3/uL (0.0-0.8) 02/23/22 04:18 Baso # (Auto) 0.0 10^3/uL (0.0-0.1) 02/23/22 04:18 Nucleated RBC % (auto) 0 % 02/23/22 04:18 Nucleated RBCs # 0.0 /100WBC 02/23/22 04:18 ESR 4 mm/hr (0-10) 02/20/22 14:40 D-Dimer 0.37 ug/mIFEU (0-0.59) 02/20/22 14:40 Sodium 140 mmol/L (136-145) 02/23/22 04:18 Potassium 3.1 mmol/L (3.5-5.1) L 02/23/22 04:18 Chloride 105 mmol/L (98-107) 02/23/22 04:18 Carbon Dioxide 25 mmol/L (22-29) 02/23/22 04:18 Anion Gap 13.1 (5-19) 02/23/22 04:18 BUN 24 mg/dL (8-23) H 02/23/22 04:18 Creatinine 1.6 mg/dL (0.7-1.2) H 02/23/22 04:18 GFR Calculation 42.9 mL/min (90-130) L 02/23/22 04:18 Glucose 146 mg/dL (65-115) H 02/23/22 04:18 POC Glucose 140 mg/dL (70-110) H 02/23/22 06:45 Estimat Average Glucose 209 02/21/22 03:35 Hemoglobin A1c 8.9 % (4.0-6.0) H 02/21/22 03:35 Calculated Osmolality 297 mOsm/kg (285-295) H 02/23/22 04:18 Calcium 7.8 mg/dL (8.5-10.5) L 02/23/22 04:18 Phosphorus 2.7 mg/dL (2.5-4.5) D 02/23/22 04:18 Magnesium 1.9 mg/dL (1.7-2.3) 02/23/22 04:18 Total Bilirubin 0.4 mg/dL (0.15-1.2) 02/23/22 04:18 AST 22 U/L (0-40) 02/23/22 04:18 ALT 20 U/L (0-41) 02/23/22 04:18 Alkaline Phosphatase 45 IU/L (40-130) 02/23/22 04:18 Troponin T Baseline 37 ng/L (0-15) H 02/20/22 14:40 Troponin T 120 Minute 37.13 ng/L (0-15) H 02/20/22 16:16 Delta Troponin T 0.13 ABS# (0-10) 02/20/22 16:16 Troponin T Hi Sens 6Hr 39.87 ng/L (0-15) H 02/20/22 21:30 Troponin T Hi Sens 6Hr Delta 2.87 ng/L (0-12) 02/20/22 21:30 C-Reactive Protein 3.0 mg/L (0.0-4.9) 02/20/22 14:40 NT-Pro-B Natriuret Pep 247 pg/mL (0-125) H 02/21/22 03:35 Total Protein 6.1 g/dL (6.6-8.7) L 02/23/22 04:18 Albumin 3.4 g/dL (3.5-5.2) L 02/23/22 04:18 Globulin 2.7 g/dL (1.3-4.6) 02/23/22 04:18 Triglycerides 336 mg/dL (0-150) H 02/21/22 03:35 Cholesterol 83 mg/dL (0-200) 02/21/22 03:35 LDL Cholesterol, Calc -10 mg/dL (50-129) L 02/21/22 03:35 HDL Cholesterol 26 mg/dL (60-100) L 02/21/22 03:35 LDL/HDL Ratio -0.38 RATIO (0.00-3.22) L 02/21/22 03:35 Cholesterol/HDL Ratio 3.19 mg/dL (1.0-5.00) 02/21/22 03:35 Amylase 154 U/L (28-100) H 02/22/22 15:44 Lipase 235 U/L (13-60) H 02/22/22 15:44 Procalcitonin 0.22 ng/mL (0-0.5) 02/21/22 03:35 TSH 0.89 uIU/mL (0.27-4.20) 02/20/22 16:16 Urine Color Yellow (Yellow) 02/22/22 11:50 Urine Appearance Clear (CLEAR) 02/22/22 11:50 Urine pH 7 (5-7) 02/22/22 11:50 Ur Specific [place] 1.005 (1.005-1.030) 02/22/22 11:50 Urine Protein Neg (Negative) 02/22/22 11:50 Urine Glucose (UA) 4+ (Normal) H 02/22/22 11:50 Urine Ketones Negative (Negative) 02/22/22 11:50 Urine Blood 2+ (Negative) H 02/22/22 11:50 Urine Nitrate Negative (Negative) 02/22/22 11:50 Urine Bilirubin Neg (Negative) 02/22/22 11:50 Urine Urobilinogen Neg mg/dL (Negative) 02/22/22 11:50 Ur Leukocyte Esterase Negative (Negative) 02/22/22 11:50 Urine RBC Rare /hpf (0-2) 02/22/22 11:50 Urine WBC 0-4 /hpf (0-5) H 02/22/22 11:50 Ur Squamous Epith Cells 0-4 /hpf (0-5) H 02/22/22 11:50 Ur Transition Epith Cell None /hpf 02/20/22 14:58 Ur Renal Epithelial Cell N /hpf 02/20/22 14:58 Calcium Oxalate Crystal None /hpf 02/20/22 14:58 Uric Acid Crystals N /hpf 02/20/22 14:58 Triple Phos Crystals None /hpf 02/20/22 14:58 Other Crystals N /hpf 02/20/22 14:58 Amorphous Sediment Not Reportable 02/22/22 11:50 Urine Bacteria None /hpf (NONE) 02/22/22 11:50 Hyaline Casts None /lpf 02/20/22 14:58 Fine Granular Casts 0-4 /lpf H 02/20/22 14:58 Coarse Granular Casts None /lpf 02/20/22 14:58 RBC Casts None /lpf 02/20/22 14:58 Other Casts N /lpf 02/20/22 14:58 Urine Mucus 1+ /hpf 02/20/22 14:58 Urine Trichomonas None /hpf 02/20/22 14:58 Urine Yeast None /hpf 02/20/22 14:58 Urine Sperm None /hpf 02/20/22 14:58 Ur Oval Fat Bodies None /hpf 02/20/22 14:58 U Random Total Protein 29 mg/dL 02/22/22 16:20 Serum Ketones Negative (Negative) 02/20/22 15:00 Vitals Last Vital Signs Temp 97.6 F 02/23/22 04:00 Pulse 66 02/23/22 09:44 Resp 19 H 02/23/22 09:44 BP 149/88 02/23/22 09:44 Pulse Ox 96 02/23/22 09:44 Discharge Plan Discharge Patient Disposition: Home Condition: Stable Prescriptions: New Lantus Solostar U-100 Insulin 100 unit/mL (3 mL) insulin pen 10 unit SUBCUT Q12H Qty: 15 0RF Novolog Flexpen U-100 Insulin 100 unit/mL (3 mL) insulin pen See Rx Instructions .ROUTE .COMPLEX Qty: 15 0RF Rx Instructions: Inject subcu, 3 times daily, after meals, based on sliding scale provided Klor-Con M20 20 mEq tablet,ER particles/crystals 20 meq PO DAILY 5 Days Qty: 5 0RF polyethylene glycol 3350 17 gram Powder In Packet 17 g PO DAILY PRN (Reason: constipation) 30 Days Qty: 30 0RF Continued levothyroxine 50 mcg tablet 50 mcg PO DAILY 0RF aspirin 81 mg Tablet,Chewable 81 mg PO DAILY 0RF rosuvastatin 40 mg tablet 40 mg PO DAILY 0RF Vitamin B-12 50 mcg Tablet 50 mcg PO DAILY 0RF Changed amlodipine 10 mg tablet 5 mg PO DAILY Qty: 30 3RF Discontinued Tradjenta 5 mg Tablet 5 mg PO DAILY 0RF chlorthalidone 25 mg tablet 25 mg PO DAILY Qty: 30 3RF Discharge Orders: Discharge Order (Routine); Ordered 02/23/22 Ordered By: Dylon Pineda Referrals: Joel North MD [Primary Care Provider] - 1-3 days (Your follow up appointment with Dr. North is on 02-28-22 at 11:15 a.m. Please call [phone] if you have any questions or concerns. Thank you.) Discharge Diet: Cardiac Discharge Activity: Resume usual activity Patient Instructions: Insulin Aspart Protamine/Insulin Aspart (By injection), Insulin Glargine (By injection), Hypoglycemia in a Person with Diabetes (DC), What is Insulin (DC), How to Give an Insulin Injection (DC), Insulin Pens (ED), What to Do if Your Blood Sugar is Low (DC), Opioid Safety Activity Restrictions/Additional Instructions: -Drink plenty of electrolyte balanced fluids, at least 2 L a day, with electrolytes such as Gatorade or Powerade preferably sugar-free version -Inject Lantus 10 units twice daily, every 12 hours -Inject NovoLog, subcu, 3 times daily, after meals, based on sliding scale provided -Do not inject insulin if you do not eat -If your blood sugar is greater than 500 call primary care -If blood sugar less than 60 drink or juice or heat or hard candy go to emergency room -Record blood sugars, bring to primary care provider Insulin sliding fingerstick? Insulin 141-180?2 units/sq 181-220?4 units/sq 221-260?6 units/sq 261-300?8 units/sq 301-350 10 units/sq 351-400 12 units/sq > 400? 14 units/sq -Follow-up with Dr. Muhammad Discharge Attestations Time Spent in Discharge Care*: less than 30 min Quality Metrics Clinical Quality Measures [ No reported AMI, CVA or VTE this stay] Coding Level of Care Code Acute Chg FW DC note Exam Detailed Diagnoses Orthostatic hypotension I95.1 Syncope and collapse R55 Dehydration E86.0 Acute hypokalemia E87.6 CKD (chronic kidney disease) N18.9
[2022-02-23 13:25] VITALS: BP 149/88
--- NOTE | 2022-02-23 13:58 | PC.NURSE ---
pt discharged per dr pineda order. follow up appointments made, rx faxed to patients pharmacy of choice. In depth discussed the new rx for lantus and novolog. pt verbalized understanding of difference between the 2, s/s of hypoglycemia. pt has glucometer at home. Dc'd pts piv, left via [place] to private vehicle of brother. No further questions at this time. post discharge dr pineda informed me patient needed another follow up for gallbladder, appointment made and I called patient with the information via phone. He verbalized understanding and stated that Dr. Pineda had called him to inform him of this.
[2022-02-23 14:41] LABS: Sodium, Urine Result 110 mmol/L; Urine Potassium 24 Hour 30 mmol/24H (25-125)
[2022-02-23 14:50] LABS: Potassium, Urine Result 69 mmol/L; Total Volume, Urine 2300 mL
[2022-02-23 15:07] LABS: Urine Total Protein 35.9 mg/dL (0-150); Urine Total Protein 24 Hour 825.7 mg/24hr (0-150)
[2022-02-24 14:27] LABS: Creatinine, Random Urine 51 mg/dL (20-320); Protein, Total, Random 47 mg/dL (5-25); Protein/Creatinine Ratio 0.922 (0.022-0.128); Protein/Creatinine Ratio 922 mg/g creat (22-128)
[2022-02-27 11:43] LABS: Albumin,Urine Random 33 %; Alpha-1-Globulins Urine Random 5 %; Alpha-2-Globulins Urine Random 28 %; Beta-Globulin,Urine Random 19 %; Gamma Globulin,Urine Random 15 %
[2022-03-01 14:46] LABS: Kappa Free Light Chains Urine 155.55 mg/L (<=32.90)
== END 2022-02-23 13:30 | disposition home or self-care (01) | DRG 312 ==
LOC: ER 16:07 → CSU 18:30
PROVIDERS: Admitting Provider Family Medicine; Emergency Provider Emergency Medicine; PCP Family Medicine; Visit Provider Family Medicine
DX: I95.1 Orthostatic hypotension (principal); N39.0 Urinary tract infection, site not specified; E87.6 Hypokalemia; N18.9 Chronic kidney disease, unspecified; E86.0 Dehydration; E11.22 Type 2 diabetes mellitus with diabetic chronic kidney disease; E11.65 Type 2 diabetes mellitus with hyperglycemia; I12.9 Hypertensive chronic kidney disease with stage 1 through stage 4 chronic kidney disease, or unspecified chronic kidney disease; E03.9 Hypothyroidism, unspecified; E78.5 Hyperlipidemia, unspecified; I45.5 Other specified heart block; Z79.82 Long term (current) use of aspirin
CPT/HCPCS: 36415; 36416; 70450; 71045; 74176; 80048; 80053; 80061; 81001; 82009; 82150; 82570; 82962; 83036; 83690; 83735; 83880; 83883; 84100; 84133; 84145; 84156; 84166; 84300; 84443; 84484; 85025; 85378; 85651; 86140; 86335; 93005; 94664; 96365; 96366; 96372; 97161; 97530; 99285; C9113; G0378; J1650; J1815 ×2; J3480; J7030; J7040

== ENCOUNTER → 2022-02-27 09:24 | Outpatient (BNVA) | payer MEDICARE, OTHER, SELFPAY | PROVIDERS: PCP Family Medicine; Visit Provider Surgery | DX: K82.8 Other specified diseases of gallbladder (principal) | CPT/HCPCS: 99204 ==

== ENCOUNTER → 2022-04-27 09:58 | Outpatient (BNVA) | payer MEDICARE, OTHER, SELFPAY | PROVIDERS: PCP Family Medicine; Visit Provider Internal Medicine | DX: Z09 Encounter for follow-up examination after completed treatment for conditions other than malignant neoplasm (principal); I12.9 Hypertensive chronic kidney disease with stage 1 through stage 4 chronic kidney disease, or unspecified chronic kidney disease; E11.22 Type 2 diabetes mellitus with diabetic chronic kidney disease; N18.9 Chronic kidney disease, unspecified; Z79.4 Long term (current) use of insulin | CPT/HCPCS: 99214 ==